=== PATIENT | female | born 1950 | race Caucasian/White ===

== ENCOUNTER 2020-02-12 09:35 | Inpatient (IN) ==
[2020-02-12] MEDS ORDERED: CEFAZOLIN 2000MG 2,000 MG/15 ML SYR IV SCH (11:00)
[2020-02-12 11:24] LABS: Basophils # (auto) 0.05 K/uL (0-0.2); Basophils % (auto) 0.6 %; Eosinophils % (auto) 1.1 %; Hematocrit (blood only) 43.2 % (37-47); Hemoglobin 14.2 g/dL (12.0-16.0); Immature Granulocytes # (auto) 0.03 K/uL (0.00-0.02); Immature Granulocytes % (auto) 0.3 %; Lymphocytes # (auto) 2.49 K/uL (1.2-3.4); Lymphocytes % (auto) 28.5 %; Mean Corpuscular Hemoglobin 30.4 pg (25-34); Mean Corpuscular Volume 92.5 fL (80-100); Mean Platelet Volume 10.2 fL (7.4-10.4); Monocytes # (auto) 0.46 K/uL (0.11-0.59); Monocytes % (auto) 5.3 %; Neutrophils # (auto) 5.61 K/uL (1.4-6.5); Neutrophils % (auto) 64.2 %; Platelet Count 272 K/uL (130-400); RDW Coefficient of Variation 13.5 % (11.5-14.5); RDW Standard Deviation 45.5 fL (36.4-46.3); Red Blood Count 4.67 M/uL (4.2-5.4); White Blood Count 8.74 K/uL (4.8-10.8)
[2020-02-12 11:28] LABS: Mean Corpuscular Hgb Conc 32.9 g/dL (32-36)
--- NOTE | 2020-02-12 11:32 | XRay Report ---
XR chest 2V PA/lateral CLINICAL HISTORY: pre op preoperative evaluation COMPARISON STUDY: 04/12/2015 FINDINGS: The bones soft tissues and hemidiaphragms are normal. The cardiomediastinal silhouette is n ormal. The lungs are clear. The pulmonary vasculature is normal. IMPRESSION: Negative chest. ACT 112: Negative or not required by law. The above report was generated using voice recognition software. It may contain grammatical, syntax or spelling errors. Electronically signed by: Curry Blanca M.D. 02/12/2020 11:31 AM
[2020-02-12 11:37] LABS: Partial Thromboplastin Time 28.2 Seconds (21.0-31.0); Prothrombin Time 10.6 Seconds (9.0-12.0)
[2020-02-12 11:42] LABS: Alanine Aminotransferase 22 U/L (12-78); Albumin Level 3.6 gm/dl (3.4-5.0); Aspartate Aminotransferase 20 U/L (15-37); Blood Urea Nitrogen 9 mg/dl (7-18); Calcium 9.2 mg/dl (8.5-10.1); Carbon Dioxide 28 mmol/L (21-32); Chloride 107 mmol/L (98-107); Est GFR (African American) 95.1; Est GFR (Non-African American) 82.1; Glucose 93 mg/dl (70-99); Potassium 4.8 mmol/L (3.5-5.1); Sodium 139 mmol/L (136-145)
[2020-02-12 11:44] LABS: Alkaline Phosphatase 94 U/L (45-117); Bilirubin,Total 0.5 mg/dl (0.2-1); Globulin 3.5 gm/dl (2.5-4.0); Total Protein 7.1 gm/dl (6.4-8.2)
[2020-02-12] MEDS ORDERED: ALPRAZolam 0.25 MG TABLET PO PRN (14:29)
[2020-02-13] MEDS ORDERED: BUPIVACAINE 0.5 % 5 MG/1 ML PF 10ML VIAL ONE (06:57)
--- NOTE | 2020-02-13 07:03 | Anesthesiology Consultation ---
Date of Service February 13, 2020 Assessment & Plan (1) Encounter for pre-operative examination: Chart Review Chart Review: Acceptable Risk for Surgery and Patient NOT seen in Pre Admission Testing covid 19 prescreening test NEGATIVE 02/12/2020. Consults Requested none History Surgery Operation Date: 02/13/20 07:30 Proposed Procedures p Left Long Trochanteric Nail - Mychal Norman MD Height/Weight Height: 5 ft 1 in Weight: 74.843 kg Allergies Allergy/AdvReac Type Severity Reaction Status Date / Time No Known Allergies Allergy Verified 08/13/02 18:52 Medications Home Medications Medication Instructions Recorded Confirmed Last Taken Alprazolam (Xanax) 0.25 - 0.5 mg PO TID PRN #0 tab 04/12/15 02/12/20 02/12/20 07:35 CALCIUM CITRATE-VITAMIN D 2 tab PO BID #0 04/12/15 02/12/20 Unknown (CITRACAL + D3 MAXIMUM) CHOLECALCIFEROL (Vitamin D) 3,000 inter.unit PO DAILY #0 tab 04/12/15 02/12/20 Unknown ERGOCALCIFEROL (VITAMIN D 32729 1 cap PO WK 28 Days #4 cap 04/12/15 02/12/20 02/08/20 [facility] (OSTEO 2 tab PO DAILY #0 04/12/15 02/12/20 Unknown BI-FLEX JOINT SHIEL) Lisinopril 10 mg PO DAILY 30 Days #0 tab 04/14/15 02/12/20 02/11/20 18:00 OXYCODONE/ACETAMINOPHEN 5MG/325MG 1 tab PO Q6 PRN #28 tab 04/14/15 02/12/20 Unknown (PERCOCET 5MG/325MG) Prednisone 30 mg PO DAILY #12 tab 04/14/15 02/12/20 Unknown Active Medications Generic Name Dose Route Start Last Admin Trade Name Freq PRN Reason Stop Dose Admin Alprazolam 0.25 mg 02/12/20 14:29 02/12/20 16:46 Alprazolam 0.25 Mg Tablet PO 03/13/20 14:28 0.25 mg TID PRN Administration Anxiety NPO Date Last Intake of Solids: 02/12/20 Time Last Intake of Solids: 19:00 Past Medical History Medical History (Updated 02/13/20 @ 07:03 by Tony Roman MD) Degenerative joint disease of right hip Depression Fracture of left pelvis HTN (hypertension) Mitral valve regurgitation Stress fracture of neck of left femur Exercise / Class Metabolic Activity II 4-5 Yardwork/Stairs/Walk up hill Past Surgical History Surgical History (Updated 02/13/20 @ 07:04 by Tony Roman MD) H/O cervical spine surgery "x 2" H/O: hysterectomy History of gastric bypass Hx of appendectomy Hx of cholecystectomy Hx of total knee arthroplasty "L knee" Hx of tubal ligation Past Anesthesia History No Hx of Anesthesia Complications and No Family Hx of Anesthesia Complications History of PONV No Hx of PONV and No Hx of Motion Sickness Social History Smoking Status: Former smoker tobacco type: cigarettes Do You Dip or Chew Tobacco: No Hx Alcohol Use: Yes Alcohol type: beer alcohol intake frequency: 3 or more drinks per day Alcohol Intake Frequency Comment: 4-5 glasses of beer per day Hx Substance Use: No Physical Exam Vital Signs Last Vital Signs Temp 37.1 C 02/13/20 06:57 Pulse 71 02/13/20 06:57 Resp 16 02/13/20 06:57 BP 172/89 H 02/13/20 06:57 Pulse Ox 100 02/13/20 06:57 Testing Laboratory Results 02/12/20 11:06 02/12/20 11:06 PT 10.6 Seconds (9.0-12.0) 02/12/20 11:06 INR 1.0 (0.9-1.1) 02/12/20 11:06 APTT 28.2 Seconds (21.0-31.0) 02/12/20 11:06 Blood Type A Negative 02/12/20 11:06 Antibody Screen NEGATIVE 02/12/20 11:06 Electrocardiogram Date: 02/12/20 Findings: + NSR @ (71) Normal sinus rhythm Normal ECG When compared with ECG of 12-APR-2015 08:36, No significant change was found
--- NOTE | 2020-02-13 07:09 | Electrocardiogram Report ---
Test Reason : Blood Pressure : / mmHG Vent. Rate : 071 BPM Atrial Rate : 071 BPM P-R Int : 134 ms QRS Dur : 082 ms QT Int : 416 ms P-R-T Axes : 049 008 042 degrees QTc Int : 452 ms Normal sinus rhythm Normal ECG When compared with ECG of 12-APR-2015 08:36, No significant change was found Confirmed by Luís Bernardo ([id number]) on 02/13/2020 7:09:35 AM Referred By: Mychal Norman Confirmed By:Luís Bernardo
--- NOTE | 2020-02-13 07:17 | History & Physical Bridge Note ---
Date of Service February 13, 2020 History & Physical Bridge Note I have examined the patient, reviewed the History & Physical and in the interval since the performance of the History & Physical I have noted the following changes of clinical significance: no changes noted
[2020-02-13] MEDS ORDERED: BUPIVACAINE/EPINEPHRINE 0.25% 1:200,000 30 ML VIAL ONE (07:32)
--- NOTE | 2020-02-13 08:51 | Post Operative Brief Note ---
PG Immediate Post Op with CF Date of Surgery February 13, 2020 Pre & Post Diagnosis Operation Date: 02/13/20 07:30 Pre-Op Diagnosis: Stress fracture of neck of left femur Post-Op Diagnosis: Stress fracture of neck of left femur I identified the patient and participated in the time-out.: Yes Procedure Operation Date: 02/13/20 07:30 Actual Procedures p Left Long Trochanteric Nail(Left) - Mychal Norman MD Surgeon Mychal Norman MD Installation Coordinator Valentine, PAC Estimated Blood Loss 100 Findings Consistent with Post-Op Diagnosis Fluids 800 cc Specimens Specimen Description: none per surgeon Drains [place] Catheter Anesthesia Type Spinal MAC Complications none Disposition Accompanied Patient To Recovery: No Disposition: Recovery Room
--- NOTE | 2020-02-13 08:59 | Operative Report ---
Post Operative Report Pre & Post Diagnosis Operation Date: 02/13/20 07:30 Pre-Op Diagnosis: Stress fracture of neck of left femur Post-Op Diagnosis: Stress fracture of neck of left femur I identified the patient and participated in the time-out.: Yes Procedure Operation Date: 02/13/20 07:30 Actual Procedures p Left Long Trochanteric Nail(Left) - Mychal Nomran MD Surgeon Mychal Norman MD Admeasurer Valentine, PAC Estimated Blood Loss 100 Findings Consistent with Post-Op Diagnosis Fluids 800 cc. Specimens None. Drains None. Anesthesia Type Spinal MAC Complications none Disposition Accompanied Patient To Recovery: No Disposition: Recovery Room Indications She has had a 2-month history of left groin pain and discomfort which is become more disabling over time. X-rays are fairly normal. An MRI showed a stress fracture of the femoral neck with significant tension sided injury. The patient indicated for IM nailing. We elect to use a long nail in order to stabilize her entire femur considering her history of osteoporosis and previous fracture on the other side.Patient is a 69-year-old female who has a long history of significant osteoporosis. Description of Procedure Operative implants consist of: 1. Synthes left 320 mm x 11 mm long trochanteric nail. 2. 80 mm helical blade. 3. 5.0 mm x 40 mm distal interlocking screw. The patient was taken to the operating identified and placed on the operating table supine position protectors were properly padded. A spinal anesthetic was employed by anesthesia team. IV antibiotics were provided. Patient then placed on the fracture table. The left leg was placed in boot traction the right leg was placed in a well leg nick. Applied some longitudinal traction to the left femur and internally rotated the foot slightly. X-rays brought in to make sure we can get adequate radiographs. Left hip and leg was then scrubbed with Hibiclens and then prepped with ChloraPrep in the usual sterile fashion. A curvilinear incision was made just at the tip of the proximal trochanter extending proximally. Sharp dissection was got through subcutaneous tissue down to the IT band gluteal fascia with the IT band gluteal fascia incised longitudinally. A guidewire was placed just lateral to the tip of the greater trochanter and in line with the IM canal. It was advanced down the IM canal under fluoroscopic guidance. This is overreamed with a 17 mm reamer. The guidewire was removed and exchanged for a ball-tipped guidewire. The ball- tipped guidewire was placed down the femoral canal. We then measured and a 320 mm nail was selected. I then reamed over the guidewire beginning with a 9 mm reamer and progressing up to 12-07/02. A Synthes the left 320 mm x 11 mm long trochanteric nail was then placed over the guidewire and tapped into position. A lateral aiming arm was attached. A stab incision was made laterally and the lateral aiming arm was advanced to the lateral aspect the femur. A guidewire was placed in the central aspect of the femoral head and neck in both AP and lateral planes. This was verified fluoroscopically. We measured for length and 80 mm helical blade was selected. The cortical drill was used to breach the cortex and then the triple reamer was reamed over the guidewire and an 80 mm helical blade was placed. Was tapped into position. The proximal setscrew was tightened. The guidewire was removed. Some final x-rays were obtained. Attention drawn toward distal fixation. A perfect lateral x-ray of the femur was then obtained for the perfect [place] technique distally. I placed a distal interlocking screw in the most distal hole. We used the dynamic hole but fixed it with an more bad static fashion placing this proximally. Stab incision was made and we drilled with a drill and a 5.0 x 40 mm screw was placed. I final x-rays were obtained. Attention drawn toward closing. All wounds were irrigated extensively. I did inject locally with 30 cc of appetite Marcaine with epinephrine. The IT band gluteal fascia then closed with #1 Vicryl suture in running fashion to the subcutaneous tissues of the proximal wound were closed in 2 layers with the deep layer #1 Vicryl suture and then the subcutaneous tissues of all wounds were closed with 2-0 Dexon suture in a buried interrupted fashion. Skin was closed skin kathleen. Leg was then cleaned dried a sterile dressing composed Xeroform, 4 x 4's, ABD pad and foam tape was applied. Patient was then taken off the fracture table and transferred to the recovery room in stable condition. Patient tolerated procedure well and there were no complications. Efe Grijalva, my physician assistant site manager, was present for the entire procedure. His assistance was required for appropriate positioning, prepping and draping, surgical exposure, performing the technical details of the operation, placing the implants, closing the wound, and placing the sterile dressing. I attest to the content of the Intraoperative Record and any orders documented therein. Any exceptions are noted below.
[2020-02-13] MEDS ORDERED: MEPERIDINE HCL 25 MG/ML CARP/VIAL ONE (09:07)
[2020-02-13] MEDS ORDERED: MEPERIDINE HCL 25 MG/ML CARP/VIAL IV PRN (09:34)
--- NOTE | 2020-02-13 09:45 | Hospitalist Consultation ---
Date of Consultation February 13, 2020 Assessment & Plan (1) Stress fracture of neck of left femur: - Pain management, bowel regimen and DVT ppx per the primary team - PT/OT consults - Follow am CBC to monitor for acute blood loss - Post surgery the pt developed some shaking in the Right upper ext which has resolved at this point. Her vitals have remained stable. BP 119/59, HR 58, Resp 16, Temp 36.1. She is on NC 2L. -Was administered Demoral 12.5 mg and has improved. Possible AR from spinal block? Anesthesiology has requested that medicine follow along. At this time with sx completely resolved there is no further intervention required, will monitor. (2) Fracture of left pelvis: - Hx of such, chronic (3) Vitamin D deficiency: (4) Osteoarthritis: - Cont vit D and calcium supplementation (5) Anxiety: - Stable (6) HTN (hypertension): - Continue lisinopril 10 mg daily (7) DVT prophylaxis: - teds, scds CODE: Full Dispo: Likely to remain in the hospital x 2 days History of Present Illness Reason for Consultation: Medical management, shaking of the R arm after L trochanter nailing on 02/12 Requesting Physician: Dr. Roman Attending Physician: Mychal Norman MD History of Present Illness This is a 69 yo F with PMhx of DJD, Depression, HTN, mitral valve regur, left pelvis fracture and stress fracture of neck of left femur who underwent elective Left long trochanteric nail by Dr. Norman on 02/13/2020. The patient developed a right arm shaking after surgical fixation in the PACU which prompted anesthesiology to re-eval the patient. She was administered Demoral 12.5 mg IV. Pt reported that this has happened before after surgery where she has uncontrolled shaking and it eventually resolves. She had a cervical surgery some time ago similarly developed increased shaking after procedure and resolved without intervention. Allergies Allergy/AdvReac Type Severity Reaction Status Date / Time No Known Allergies Allergy Verified 08/13/02 18:52 Home Medications Home Medications Medication Instructions Recorded Confirmed Type Alprazolam (Xanax) 0.25 - 0.5 mg PO TID PRN #0 tab 04/12/15 02/12/20 History CALCIUM CITRATE-VITAMIN D 2 tab PO BID #0 04/12/15 02/12/20 History (CITRACAL + D3 MAXIMUM) CHOLECALCIFEROL (Vitamin D) 3,000 inter.unit PO DAILY #0 tab 04/12/15 02/12/20 History ERGOCALCIFEROL (VITAMIN D 85068 1 cap PO WK 28 Days #4 cap 04/12/15 02/12/20 History UNIT) [facility] NATURAL PRODUCTS (OSTEO 2 tab PO DAILY #0 04/12/15 02/12/20 History BI-FLEX JOINT SHIEL) Lisinopril 10 mg PO DAILY 30 Days #0 tab 04/14/15 02/12/20 Rx OXYCODONE/ACETAMINOPHEN 5MG/325MG 1 tab PO Q6 PRN #28 tab 04/14/15 02/12/20 Rx (PERCOCET 5MG/325MG) Prednisone 30 mg PO DAILY #12 tab 04/14/15 02/12/20 Rx Patient History Medical History (Updated 02/13/20 @ 09:48 by Diamond Ulrich PA-C) Degenerative joint disease of right hip Depression Fracture of left pelvis HTN (hypertension) Mitral valve regurgitation Stress fracture of neck of left femur Surgical History (Updated 02/13/20 @ 07:04 by Tony Roman MD) H/O cervical spine surgery "x 2" H/O: hysterectomy History of gastric bypass Hx of appendectomy Hx of cholecystectomy Hx of total knee arthroplasty "L knee" Hx of tubal ligation Social History Smoking Status: Former smoker Second Hand Exposure: No; Do You Dip or Chew Tobacco: No; Tobacco Cessation Education Requested by Patient: No Hx Alcohol Use: Yes Alcohol type: beer Hx Substance Use: No Preferred Language: Bulgarian Communication Ability: Effective Beliefs That Will Affect Care: None marital status: Current Living Situation: Family Feels Safe at Home: Yes Safety Concerns: Feels Safe At This Time Results & Data Results & Data ([facility]) Vital Signs (Past 12 Hours) Vital Signs Temp Pulse Pulse Pulse Resp BP BP 02/13/20 08:55 36.1 C L 70 21 110/56 L 02/13/20 06:57 37.1 C 71 16 172/89 H 02/12/20 22:54 36.9 C 81 16 136/82 Pulse Ox 02/13/20 08:55 100 02/13/20 06:57 100 02/12/20 22:54 99 PG Care Time/CCT Total # of Minutes Spent Total Time Spent with Patient: Total time spent is greater than 50% in coordination of care (as documented) at patient's floor/unit and/or counseling patient: Coding Diagnoses Stress fracture of neck of left femur M84.352A Fracture of left pelvis S32.9XXA Vitamin D deficiency E55.9 Osteoarthritis M19.90 Anxiety F41.9 HTN (hypertension) I10 DVT prophylaxis Z29.9
--- NOTE | 2020-02-13 10:15 | Anesthesiology Progress Note ---
Date of Service February 13, 2020 Anesthesia Post Procedure Vital Signs Vital Signs: Temp Pulse Pulse Pulse Resp BP BP 02/13/20 10:05 36.2 C L 59 L 12 129/65 02/13/20 09:55 59 L 16 133/77 02/13/20 09:45 59 L 16 121/63 02/13/20 09:35 58 L 16 119/59 L 02/13/20 09:25 60 16 119/60 02/13/20 09:15 72 20 113/60 02/13/20 09:05 63 20 100/64 02/13/20 08:55 36.1 C L 70 21 110/56 L 02/13/20 06:57 37.1 C 71 16 172/89 H 02/12/20 22:54 36.9 C 81 16 136/82 02/12/20 15:25 37.0 C 63 18 152/80 H 02/12/20 11:13 36.7 C 16 142/84 H Pulse Ox 02/13/20 10:05 100 02/13/20 09:55 100 02/13/20 09:45 100 02/13/20 09:35 100 02/13/20 09:25 100 02/13/20 09:15 100 02/13/20 09:05 100 02/13/20 08:55 100 02/13/20 06:57 100 02/12/20 22:54 99 02/12/20 15:25 98 02/12/20 11:13 96 Pain Intensity Left Hip: Pain Intensity: 0 Leg: Pain Intensity: 4 Transfer of Care Handoff Completed per policy Notes Mental Status: alert / awake / arousable and participated in evaluation Patient Amnestic to Procedure: Yes Nausea / Vomiting: adequately controlled Pain: adequately controlled Airway Patency, RR, SpO2: stable & adequate BP & HR: stable & adequate Hydration State: stable & adequate Neuraxial Anesthesia: was administered and sensory block is resolving Anesthetic Complications: no major complications apparent and Pt Satisfied with anesthetic care Notes: Patient had a bout of shivering/shaking in recovery. No LOC. Answering questions throughout. Gave a dose of demerol that helped but RUE continued with tremor. Patient stated this has happened previously (started 2 years ago) and she has not sought out the advice of her primary care provider relating to this problem. Decided to consult hospitalist service to assist with postop management when she goes to the floor. Provider aware of the shaking/shivering event but it had resolved (lasted only but 30-60 seconds when I was called to the bedside to evaluate) prior to her being transferred to the floor. Spinal block is resolving and patient had all questions answered relating to anesthesia and the spinal prior to her being sent back to the floor.
[2020-02-13] MEDS ORDERED: NATURAL PRODUCTS PO SCH (10:16)
[2020-02-13] MEDS ORDERED: NALOXONE HCL 0.4 MG/1 ML VIAL/CARP IV PRN (10:16)
[2020-02-13] MEDS ORDERED: PREDNISONE 30 MG PO SCH (10:16)
--- NOTE | 2020-02-13 10:46 | Fluoroscopy Report ---
FL hip LT 2-3V CLINICAL HISTORY: Hip fracture COMPARISON STUDY: MRI dated 02/11/2020 FLUOROSCOPY TIME: 18 seconds. NUMBER OF FLUOROSCOPIC IMAGES: 4 FINDINGS: 4 intraoperative fluoroscopic spot images demonstrate a femoral neck nail and interlocking intramedullary anna with a transverse distal interlocking screw. There are postsurgical changes of a t otal left knee arthroplasty. IMPRESSION: Fluoroscopic spot images demonstrating internal fixation of a femoral neck fracture ACT 112: Negative or not required by law. Electronically signed by: Dago Rich M.D. 02/13/2020 10:44 AM
[2020-02-13] MEDS: CHOLECALCIFEROL 1,000 UNITS 25 MCG TAB PO SCH (11:23)
[2020-02-13] MEDS: CALCIUM 600MG + VIT D 400 IU TAB PO SCH ×2 (11:23→21:04)
[2020-02-13] MEDS ORDERED: GABAPENTIN 1200MG ALCOHOL WITHDRAWAL LOAD PO STA (11:25)
[2020-02-13] MEDS ORDERED: LORazepam 1 MG TAB PO PRN (11:25)
[2020-02-13] MEDS ORDERED: LORazepam 0.5 MG/1 ML VIAL IV ONE (11:45)
[2020-02-13] MEDS ORDERED: GABAPENTIN 600 MG TAB PO ONE (12:00)
[2020-02-13] MEDS: D5W AND 1/4NSS 1,000 ML IV SCH (12:30)
[2020-02-13] MEDS: lisinopriL 10 MG TAB PO SCH (12:31)
--- NOTE | 2020-02-13 12:32 | Consultation ---
Date of Consultation February 13, 2020 Assessment & Plan (1) Stress fracture of neck of left femur: S/P left long trochanteric nail by Dr. oNrman POD #0 EBL 100 mL Tolerated procedure well Pain/wound management per Ortho Activity, therapy and DVT prophylaxis per Ortho Encourage incentive spirometry and wean off O2 as able Monitor H&H (2) Tremor: post operative tremor of upper extremity/head pt states post op had tremors in past, unknown cause & resolved on own She is hemodynamically stable possible ADR of anesthesia, but also of concern is patient significant alcohol use, last drink evening of 02/10 Feel less likely active withdrawal as tremor resolves as you engage with patient in conversation and she is not tachycardic Place on ETOH withdrawal protocol (3) Alcohol abuse: discussed with patient regarding significant alcohol use, states uses it for pain relief Current cessation Place on AWSS protocol Gabapentin taper Give Lorazepam 0.5mg IV x 1 now Tremors seem to subside after engaging patient, less likely active withdrawal at this time as HR is in 60s monitor closely (4) HTN (hypertension): Blood pressure elevated, resume lisinopril Monitor (5) Anxiety: Mood stable, PRN Xanax (6) Vitamin D deficiency: Replete weekly (7) DVT prophylaxis: ASA BID per ortho Disposition: per primary Follow up: PCP Dr. Rouse upon discharge Pt was seen and examined in collaboration with Dr. Huston, please see addendum Thank you for this consultation. We will follow the patient with you during their hospital stay. You [facility] via pager @ [phone]. Supervising Physician Co-Signing Physician Notes I have seen and examined the patient and have discussed the case with the rajendra meehan above. I agree with the assessment and plan as stated. 69 F with HTN and alcohol abuse s/p trochanteric nail this morning. She is being seen in the evening and is doing well. She was concerned that she still had heaviness to her legs with feeling now coming back to her feet bilaterally. We spoke about the effects of spinal anesthesia and she was reassured this would clear up by the morning. She has been on an alcohol withdrawal protocol and is not exhibiting any symptoms of withdrawal at this time. She is calm and eating well. Aside from some residual effect of the anesthesia, she appears neurologically intact. 3/6 JACLYN, S1/2 heard, clear lungs to auscultation bilaterally. Sensation is normal and same on her feet now. No increased respiratory effort. Agree with plan of care as above. Patient is overall feeling better. Thank you for this consultation. DO Shabbir Huston Hospitalist History of Present Illness Requesting Physician: Tony Roman MD Reason for Consultation: Post op shaking in PACU. Attending Physician: Mychal Norman MD History of Present Illness This is a 69-year-old female who has significant past medical history of HTN, HLD, mitral valve regurg history of gastric bypass, osteoporosis, cervical radiculopathy, panic disorder, anxiety, alcohol abuse who underwent elective left long trochanteric nail by Dr. Norman on 02/13/2020 secondary to stress fracture of neck of left femur and left pelvis fracture. In PACU patient developed shaking and tremors to right upper extremity. This was witnessed by anesthesiology. She received 12.5 mg IV Demerol with improvement of symptoms. Symptoms lasted approximately 30 to 60 seconds and apparently had resolved. According to patient she had similar episode in the past although was not this severe. When I went to see and evaluate patient she was having shaking/tremors to bilateral upper extremities and head. She states "I have never experienced this before." She denies any resting tremor at baseline. Currently she otherwise feels well and denies any current pain to the left leg, although she is still under effects of anesthesia. She denies any recent fever, chills, sweats, lightheadedness, dizziness, chest pain, shortness breath, cough, nausea, vomiting, abdominal pain. She states she did not move her bowels yesterday and is requesting stool softener. She currently has Stuart catheter in place. We did discuss alcohol use in which she states that she drinks 4-5 - 8 ounce beers daily. She drinks steel reserve which are 8.1%. She states she went a few days without drinking in past and did not experience and s/sx of withdrawal including tremors, sweats or racing heart beat. Currently she is hypertensive and states she did not take her lisinopril this morning or yesterday. Allergies Allergy/AdvReac Type Severity Reaction Status Date / Time amoxicillin [From Augmentin] AdvReac Intermediate diarrhea Verified 02/13/20 10:58 clavulanic acid AdvReac Intermediate diarrhea Verified 02/13/20 10:58 [From Augmentin] Home Medications Home Medications Medication Instructions Recorded Confirmed Type alprazolam 0.25 mg PO TID PRN 02/13/20 02/13/20 History ergocalciferol (vitamin D2) 1,250 mcg PO WK 02/13/20 02/13/20 History [Vitamin D2] lisinopril 10 mg PO DAILY 02/13/20 02/13/20 History Patient History Medical History Degenerative joint disease of right hip Depression Fracture of left pelvis HTN (hypertension) Mitral valve regurgitation Stress fracture of neck of left femur Surgical History H/O cervical spine surgery "x 2" H/O: hysterectomy History of gastric bypass Hx of appendectomy Hx of cholecystectomy Hx of total knee arthroplasty "L knee" Hx of tubal ligation Family History Aunt Breast cancer Brother Diabetes Social History (Updated 02/13/20 @ 12:18 by Lani Colvin PA-C) Smoking Status: Former smoker Second Hand Exposure: No; Do You Dip or Chew Tobacco: No; Tobacco Cessation Education Requested by Patient: No Hx Alcohol Use: Yes Alcohol type: beer Alcohol Intake Frequency Comment: daily, 4-5 8oz glasses of steel reserve 8.1% Hx Substance Use: No Preferred Language: Khmer Communication Ability: Effective Beliefs That Will Affect Care: None marital status: Current Living Situation: Spouse and Family Feels Safe at Home: Yes Safety Concerns: Feels Safe At This Time Review of Systems Review of Systems: All systems reviewed & are unremarkable except as noted in HPI & below Physical Exam Physical Exam: Constitutional: WD/WN, vitals as above, NAD, patient with resting tremor of bilateral upper extremities and head which seem to resolve with conversation, sitting up in bed, answers questions appropriately Head: Normocephalic, Atraumatic Eyes: PERRL, conjunctivae normal, anicteric sclerae ENMT: external ear and nose normal, oropharynx normal Neck: trachea midline, no thyromegaly normal visual inspection Respiratory: normal respiratory effort, lungs clear to auscultation, no wheeze, rales, rhonchi. Normal insp/exp effort, no accessory muscle use Cardiovascular: RRR, no murmur, no edema Vessels: no JVD or carotid bruit Chest: normal inspection of chest Abdomen: normal bowel sounds, soft, nontender, no hepatosplenomegaly Musculoskeletal: no cyanosis or clubbing, left lateral thigh dressing CDI, NVI distally, b/l pedal pulse +2, arom to b/l upper ext Skin: no rashes, warm and dry normal turgor Neurologic: PERRL, EOMI, accommodation nl, no face palsy, no dysarthria CN's II-XI intact bilaterally and moves all extremities Psychiatric: A+Ox3, euthymic affect Lymphatic: no cervical or axillary lymphadenopathy : +stuart cath draining clear yellow urine Results & Data ([facility]) Vital Signs (Past 12 Hours) Vital Signs Temp Pulse Pulse Pulse Resp BP BP 02/13/20 11:15 67 16 160/88 H 02/13/20 10:51 36.5 C 18 149/95 H 02/13/20 10:15 36.4 C L 76 18 137/78 02/13/20 10:05 36.2 C L 59 L 12 129/65 02/13/20 09:55 59 L 16 133/77 02/13/20 09:45 59 L 16 121/63 02/13/20 09:35 58 L 16 119/59 L 02/13/20 09:25 60 16 119/60 02/13/20 09:15 72 20 113/60 02/13/20 09:05 63 20 100/64 02/13/20 08:55 36.1 C L 70 21 110/56 L 02/13/20 06:57 37.1 C 71 16 172/89 H Pulse Ox 02/13/20 11:15 100 02/13/20 10:51 95 02/13/20 10:15 02/13/20 10:05 100 02/13/20 09:55 100 02/13/20 09:45 100 02/13/20 09:35 100 02/13/20 09:25 100 02/13/20 09:15 100 02/13/20 09:05 100 02/13/20 08:55 100 02/13/20 06:57 100 Laboratory Results 02/11 labs: H/H 14.2 and 43.2, K 4.8, Bun 9, Cr 0.74 02/12/20 02/12/20 02/12/20 Range/Units 12:45 12:45 11:06 COVID-19 Eval Order Covid19 Done at [facility] COVID-19 PCR NEGATIVE (Negative) Blood Type A Negative Antibody Screen NEGATIVE Diagnostic Findings Hip Xray: IMPRESSION: Fluoroscopic spot images demonstrating internal fixation of a femoral neck fracture CXR 02/11: No acute process Medications Administered Alprazolam (Alprazolam 0.25 Mg Tablet) 0.25 mg PO TID PRN PRN Reason: Anxiety Stop: 03/13/20 14:28 Last Admin: 02/12/20 16:46 Dose: 0.25 mg Documented by: [id number] Meperidine HCl (Meperidine Hcl 25 Mg/Ml Carp/Vial) 12.5 mg IV Q5M PRN PRN Reason: PACU Use Only-Pain/Shivering Stop: 02/13/20 17:34 Last Admin: 02/13/20 09:07 Dose: 12.5 mg Documented by: [id number] Multivitamins/Minerals (Calcium 600mg + Vit D 400 Iu Tab) 1 tab PO BID EHSAN Stop: 03/14/20 10:15 Last Admin: 02/13/20 11:23 Dose: Not Given Documented by: [id number] Vitamin D (Cholecalciferol 1,000 Units 25 Mcg Tab) 3,000 units PO DAILY EHSAN Stop: 03/14/20 10:15 Last Admin: 02/13/20 11:23 Dose: Not Given Documented by: [id number] Discontinued Medications Bupivacaine HCl/Epinephrine Bitart (Bupivacaine/Epinephrine 0.25% 1:200,000 30 Ml Vial) Confirm Administered Dose 30 ml .ROUTE .STK-MED ONE Stop: 02/13/20 07:33 Last Admin: 02/13/20 08:32 Dose: 30 ml Documented by: [id number] Cefazolin Sodium (Ancef 2000mg) 2,000 mg in 15 mls @ 3.75 mls/min IV PREOP EHSAN; Protocol Stop: 02/12/20 23:00 Last Admin: 02/13/20 07:44 Dose: 3.75 mls/min Documented by: [id number] Meperidine HCl (Meperidine Hcl 25 Mg/Ml Carp/Vial) Confirm Administered Dose 25 mg .ROUTE .K-MED ONE Stop: 02/13/20 09:08 Last Admin: 02/13/20 10:31 Dose: Not Given Documented by: [id number] ECG Rate (beats per minute): 71 Rhythm: normal sinus
[2020-02-13] MEDS: OXYCODONE HCL IR 5 MG TAB (IMMEDIATE RELEASE) PO PRN ×2 (14:07→18:07)
[2020-02-13] MEDS: HYDROmorphone INJ 0.5 MG/0.5 ML SYR IV PRN (17:37)
[2020-02-13] MEDS: GABAPENTIN 600 MG TAB PO SCH (17:37)
[2020-02-13] MEDS: DOCUSATE SODIUM/SENNA 50/8.6MG TAB PO SCH (21:04)
[2020-02-13] MEDS: ASPIRIN 81 MG ECTAB PO SCH (21:04)
[2020-02-14] MEDS: D5W AND 1/4NSS 1,000 ML IV SCH (00:14)
[2020-02-14] MEDS: GABAPENTIN 600 MG TAB PO SCH ×4 (00:15→23:25)
[2020-02-14] MEDS: OXYCODONE HCL IR 5 MG TAB (IMMEDIATE RELEASE) PO PRN ×5 (03:17→22:28)
[2020-02-14 06:04] LABS: Basophils # (auto) 0.03 K/uL (0-0.2); Basophils % (auto) 0.3 %; Eosinophils # (auto) 0.14 K/uL (0-0.5); Eosinophils % (auto) 1.5 %; Hematocrit (blood only) 33.7 % (37-47); Hemoglobin 11.3 g/dL (12.0-16.0); Immature Granulocytes # (auto) 0.02 K/uL (0.00-0.02); Immature Granulocytes % (auto) 0.2 %; Lymphocytes # (auto) 2.02 K/uL (1.2-3.4); Lymphocytes % (auto) 21.8 %; Mean Corpuscular Hemoglobin 30.6 pg (25-34); Mean Corpuscular Hgb Conc 33.5 g/dL (32-36); Mean Corpuscular Volume 91.3 fL (80-100); Mean Platelet Volume 9.8 fL (7.4-10.4); Monocytes # (auto) 0.91 K/uL (0.11-0.59); Monocytes % (auto) 9.8 %; Neutrophils # (auto) 6.15 K/uL (1.4-6.5); Neutrophils % (auto) 66.4 %; Platelet Count 203 K/uL (130-400); RDW Coefficient of Variation 13.4 % (11.5-14.5); Red Blood Count 3.69 M/uL (4.2-5.4); White Blood Count 9.27 K/uL (4.8-10.8)
[2020-02-14 06:35] LABS: BUN Creatinine Ratio 8.3 (10-20); Calcium 7.8 mg/dl (8.5-10.1); Creatinine Clr Calc Pharmacy 70.2 ml/min; Est GFR (African American) 102.2; Est GFR (Non-African American) 88.2; Potassium 3.8 mmol/L (3.5-5.1)
[2020-02-14] MEDS: HYDROmorphone INJ 0.5 MG/0.5 ML SYR IV PRN (06:44)
[2020-02-14] MEDS: CHOLECALCIFEROL 1,000 UNITS 25 MCG TAB PO SCH (08:51)
[2020-02-14] MEDS: CALCIUM 600MG + VIT D 400 IU TAB PO SCH ×2 (08:51→20:47)
[2020-02-14] MEDS: lisinopriL 10 MG TAB PO SCH (08:51)
[2020-02-14] MEDS: DOCUSATE SODIUM/SENNA 50/8.6MG TAB PO SCH ×2 (08:51→20:47)
[2020-02-14] MEDS: ASPIRIN 81 MG ECTAB PO SCH ×2 (08:51→20:47)
[2020-02-14] MEDS ORDERED: lisinopriL 10 MG TAB PO SCH (09:00)
--- NOTE | 2020-02-14 09:53 | Hospitalist Progress Note ---
Date of Service February 14, 2020 Assessment & Plan (1) Stress fracture of neck of left femur: S/P left long trochanteric nail by Dr. Norman POD #1 Tolerated procedure well Developed tremors in PACU after procedure Pain/wound management per Ortho Activity, therapy and DVT prophylaxis per Ortho Encourage incentive spirometry and wean off O2 as able Monitor H&H (2) Tremor: post operative tremor of upper extremity/head pt states post op had tremors in past, unknown cause & resolved on own She is hemodynamically stable possible ADR of anesthesia, but also of concern is patient significant alcohol use, last drink evening of 02/10 Feel less likely active withdrawal as tremor resolved when engaged with staff, pt not tachycardic Placed on ETOH withdrawal protocol (3) Alcohol abuse: Pt states uses alcohol for pain relief, daily beer drinker Current cessation Place on AWSS protocol Gabapentin taper Give Lorazepam 0.5mg IV x 1 now Tremors seem to subside after engaging patient, less likely active withdrawal at this time as HR is in 60s monitor closely Fever -Patient developed fever 38.1 Celsius, last evening postop -This morning, patient has temperature 37.8 C -She feels well overall -We will do infectious work-up, chest x-ray, blood cultures, urine culture -Empiric antibiotics for now, until infectious etiology ruled out (4) HTN (hypertension): Blood pressure elevated, resume lisinopril Monitor (5) Anxiety: Mood stable, PRN Xanax (6) Vitamin D deficiency: Replete weekly (7) DVT prophylaxis: ASA BID per ortho Disposition: per primary Follow up: PCP Dr. Rouse upon discharge Thank you for this consultation. We will follow the patient with you during their hospital stay. You can reach a member of the [facility]ist Team 21/01 via pager @ [phone]. Admission and Anticipated Discharge Date Admission Date: February 12, 2020 Subjective Patient spiked fever last night, around 8 PM, 38.1 Celsius. Patient received cefazolin prior to surgery. We will do infectious work-up, blood culture, urine, chest x-ray. Will empirically treat with antibiotics for now. Medicine consulted for tremors, not clear if this is related to her alcohol use. Currently patient is lying in bed, in no acute distress. She says that in the morning her left hip was really bothering her, and she was in a lot of pain. She is also aware of having a fever last night, currently denies any chills, chest pain, shortness of breath, cough, abdominal pain, nausea or vomiting. Also denies any more tremors. Review of Systems Review of Systems: All systems reviewed & are unremarkable except as noted in HPI & below Constitutional: no fever and no chills Respiratory: no cough and no dyspnea Cardiovascular: no chest pain and no palpitations Gastrointestinal: no abdominal pain, no nausea and no vomiting Physical Exam Physical Exam: Constitutional: WD/WN, vitals as above, laying in bed, in NAD Head: Normocephalic, Atraumatic Eyes: PERRL, EOMI, conjunctivae normal, anicteric sclerae ENMT: external ear and nose normal, oropharynx normal Neck: trachea midline, no thyromegaly normal visual inspection Respiratory: normal respiratory effort, lungs clear to auscultation, no wheeze, rales, rhonchi. Normal insp/exp effort, no accessory muscle use Cardiovascular: RRR, no murmur, no edema Vessels: no JVD or carotid bruit Chest: normal inspection of chest Abdomen: normal bowel sounds, soft, nontender Musculoskeletal: no cyanosis or clubbing, left lateral thigh dressing CDI, NVI distally, b/l pedal pulse +2, arom to b/l upper ext Skin: no rashes, warm and dry normal turgor Neurologic: PERRL, EOMI, accommodation nl, no face palsy, no dysarthria CN's II-XI intact bilaterally and moves all extremities Psychiatric: A+Ox3, euthymic affect : +stuart cath draining clear yellow urine Results & Data Results & Data ([facility]) Vital Signs (Past 12 Hours) Vital Signs Temp Pulse Resp BP Pulse Ox 02/14/20 08:22 37.8 C H 83 18 125/75 97 02/14/20 03:10 37.5 C 85 16 117/75 97 02/13/20 23:16 37.0 C 80 16 100/65 95 Laboratory Results 02/14/20 02/14/20 02/14/20 Range/Units 05:18 05:18 05:18 WBC 9.27 (4.8-10.8) K/uL RBC 3.69 L (4.2-5.4) M/uL Hgb 11.3 L (12.0-16.0) g/dL Hct 33.7 L (37-47) % MCV 91.3 (80-100) fL MCH 30.6 (25-34) pg MCHC 33.5 (32-36) g/dL RDW Std Deviation 45.0 (36.4-46.3) fL RDW Coeff of Soumya 13.4 (11.5-14.5) % Plt Count 203 (130-400) K/uL MPV 9.8 (7.4-10.4) fL Immature Gran % (Auto) 0.2 % Neut % (Auto) 66.4 % Lymph % (Auto) 21.8 % Gray % (Auto) 9.8 % Eos % (Auto) 1.5 % Baso % (Auto) 0.3 % Neut # (Auto) 6.15 (1.4-6.5) K/uL Lymph # (Auto) 2.02 (1.2-3.4) K/uL Gray # (Auto) 0.91 H (0.11-0.59) K/uL Eos # (Auto) 0.14 (0-0.5) K/uL Baso # (Auto) 0.03 (0-0.2) K/uL Immature Gran # (Auto) 0.02 (0.00-0.02) K/uL Sodium 140 (136-145) mmol/L Potassium 3.8 D (3.5-5.1) mmol/L Chloride 107 (98-107) mmol/L Carbon Dioxide 27 (21-32) mmol/L Anion Gap 6.0 (3-11) BUN 6 L (7-18) mg/dl Creatinine 0.69 (0.6-1.2) mg/dl Est Cr Clr Drug Dosing 70.2 ml/min Est GFR ( Amer) 102.2 Est GFR (Non-Af Amer) 88.2 BUN/Creatinine Ratio 8.3 L (10-20) Glucose 105 H (70-99) mg/dl Calcium 7.8 L D (8.5-10.1) mg/dl Magnesium 1.9 (1.8-2.4) mg/dl Medications Administered Current Inpatient Medications Alprazolam (Alprazolam 0.25 Mg Tablet) 0.25 mg PO TID PRN PRN Reason: Anxiety Stop: 03/13/20 14:28 Last Admin: 02/12/20 16:46 Dose: 0.25 mg Documented by: Aspirin (Aspirin 81 Mg Ectab) 81 mg PO BID [facility] Stop: 03/14/20 20:59 Last Admin: 02/14/20 08:51 Dose: 81 mg Documented by: Ergocalciferol (Ergocalciferol 50,000 Units Cap) 50,000 units PO Mo@0900 [facility] Stop: 03/16/20 08:59 Gabapentin (Gabapentin 600 Mg Tab) 600 mg PO Q8H EHSAN Stop: 02/15/20 00:01 Last Admin: 02/14/20 08:04 Dose: 600 mg Documented by: Gabapentin (Gabapentin 600 Mg Tab) 600 mg PO Q12H [facility] Stop: 02/16/20 00:01 Gabapentin (Gabapentin 600 Mg Tab) 600 mg PO Q24H [facility] Stop: 02/17/20 00:01 Hydromorphone HCl (Hydromorphone Inj 0.5 Mg/0.5 Ml Syr) 0.5 mg IV Q2H PRN PRN Reason: Pain Stop: 02/27/20 10:19 Last Admin: 02/14/20 06:44 Dose: 0.5 mg Documented by: Lisinopril (Lisinopril 10 Mg Tab) 10 mg PO DAILY [facility] Stop: 03/14/20 11:29 Last Admin: 02/14/20 08:51 Dose: 10 mg Documented by: Lorazepam (Lorazepam 1 Mg Tab) 1 mg PO ONE PRN; Protocol PRN Reason: EtoH Withdrawal AWSS 6-10 Miscellaneous Information (Consult Pharmacy) 1 ea N/A NOW STA Stop: 02/14/20 09:47 Multivitamins/Minerals (Calcium 600mg + Vit D 400 Iu Tab) 1 tab PO BID EHSAN Stop: 03/14/20 10:15 Last Admin: 02/14/20 08:51 Dose: Not Given Documented by: Naloxone HCl (Naloxone Hcl 0.4 Mg/1 Ml Vial/Carp) 0.1 mg IV UD PRN PRN Reason: Opioid Overdose Stop: 03/14/20 10:15 Oxycodone HCl (Oxycodone Hcl Ir 5 Mg Tab (Immediate Release)) 5 mg PO Q4H PRN PRN Reason: Pain Stop: 02/27/20 10:19 Last Admin: 02/14/20 08:50 Dose: 5 mg Documented by: Senna/Docusate Sodium (Docusate Sodium/Senna 50/8.6mg Tab) 1 tab PO BID [facility] Stop: 03/14/20 20:59 Last Admin: 02/14/20 08:51 Dose: 1 tab Documented by: Vitamin D (Cholecalciferol 1,000 Units 25 Mcg Tab) 3,000 units PO DAILY [facility] Stop: 03/14/20 10:15 Last Admin: 02/14/20 08:51 Dose: Not Given Documented by:
[2020-02-14] MEDS ORDERED: CEFEPIME CONSULT ACTIVE PRN (09:56)
[2020-02-14] MEDS: CEFEPIME 2,000 MG in SYRINGE 7.5 ML IV SCH ×2 (10:18→22:29)
--- NOTE | 2020-02-14 10:25 | Progress Notes ---
DATE: 02/14/2020 SUBJECTIVE: A 69-year-old female postop day 1 from IM nailing of a left femoral neck stress fracture. She is having quite a bit of pain. They had difficulty getting her out of bed last evening. She describes mostly lateral hip pain and some thigh pain. No chest pain or shortness of breath. Not feeling dizzy or lightheaded. The patient did have significant tremors when she woke from anesthesia yesterday. The medicine service was consulted. The tremors have resolved. I think it is most likely just related to anesthesia, which is a known issue. There was some concern about alcohol withdrawal, which I think is much less likely. In any case, they placed her on an alcohol withdrawal protocol. OBJECTIVE: VITAL SIGNS: Temperature is 37.5. Vital signs stable. GENERAL: Shows a pleasant elderly female. She is lying in bed. She is kind of a bit weepy. EXTREMITIES: Leg is well aligned. Dressings are clean, dry and intact. There is no swelling. She can dorsiflex and plantarflex her foot appropriately. She is struggling on doing a single leg independent leg lift. LABORATORY DATA: Hemoglobin 11.3. Hematocrit 33.7. Electrolytes are stable. ASSESSMENT: A 69-year-old female postop day 1 from IM nailing of left femoral neck stress fracture/insufficiency fracture. She is having quite a bit of discomfort. I believe her pain tolerance is likely quite low. Everything looks better from the orthopedic standpoint. There was some concern about alcohol withdrawal, which I think is extremely unlikely. I think she just had some postoperative tremors, which responded to Demerol. PLAN: 1. DVT prophylaxis including thigh-high TEDs, SCDs, and aspirin twice a day. 2. PT/OT. We are going to allow her to be 50% weightbearing on the left leg. I told her it is normal to have trouble lifting her leg at least for the first week or two after an operation like this. 3. Pain control, doing okay with current pain regimen. 4. Medical management as per the medicine service. She is on a DT protocol. 5. Disposition: She is hoping to be discharged to home. We are going to see how therapy goes today. If she is doing okay, we may discharge today or depending on pain control may be in a day or 2.
--- NOTE | 2020-02-14 10:42 | XRay Report ---
XR chest 1V portable HISTORY: 69 years-old Female fever acute fever COMPARISON: Chest radiograph 02/12/2020 TECHNIQUE: Portable AP view of the chest FINDINGS: Cardiomediastinal and hilar silhouettes are within normal limits. No pneumothorax, pleural effusion, airspace consolidation or overt pulmonary edema. Degenerative changes of the shoulders and spine. Low er cervical spine fusion hardware. IMPRESSION: No acute process. ACT 112: Negative or not required by law. The above report was generated using voice recognition software. It may contain grammatical, syntax o r spelling errors. Electronically signed by: Carter Bernardo M.D. 02/14/2020 10:40 AM
[2020-02-14 11:25] LABS: Appearance Urine Clear (Clear); Bilirubin Urine Negative (Negative); Blood Urine Trace (Negative); Color Urine Yellow; Glucose Urine UA Negative (Negative); Ketones Urine Negative (Negative); Leukocyte Esterase Urine 1+ (Negative); Nitrite Urine Negative (Negative); Protein Urine Trace (Negative); Specific Gravity Urine 1.025 (1.000-1.030); Urobilinogen Urine Negative (Negative)
[2020-02-14 11:55] LABS: Epithelial Cell Urine 20-30 /lpf (0-5)
[2020-02-14 11:56] LABS: Calcium Oxalate Crystals Urine Present (None Prsent)
[2020-02-14 11:57] LABS: Bacteria Urine 1+ (Negative)
[2020-02-14] MEDS ORDERED: ACETAMINOPHEN 325 MG TAB PO PRN (23:19)
[2020-02-14] MEDS ORDERED: NORMOSOL-R 500 ML IV ONE (23:23)
[2020-02-15] MEDS ORDERED: DAPTOMYCIN CONSULT ACTIVE PRN (00:23)
--- NOTE | 2020-02-15 00:23 | Communication Note ---
Date of Service: February 15, 2020 Made aware by RN of SBP 90s, intermittent fever spike Lactic acid 2.4 AP Possible sepsis Unknown source for now IVF, follow lactic acid Add Daptomycin to cefepime Rx for now Will relay to AM provider.
[2020-02-15] MEDS ORDERED: MAGNESIUM SULFATE / D5W 1 GM/100 ML BAG IV ONE (00:26)
[2020-02-15] MEDS ORDERED: LACTATED RINGER'S 1,000 ML IV SCH (00:30)
[2020-02-15] MEDS ORDERED: DAPTOmycin 300 MG in SYRINGE 0 ML IV SCH (01:00)
[2020-02-15 04:10] LABS: Basophils # (auto) 0.03 K/uL (0-0.2); Basophils % (auto) 0.3 %; Eosinophils # (auto) 0.18 K/uL (0-0.5); Eosinophils % (auto) 1.6 %; Hematocrit (blood only) 31.5 % (37-47); Hemoglobin 10.4 g/dL (12.0-16.0); Immature Granulocytes # (auto) 0.05 K/uL (0.00-0.02); Immature Granulocytes % (auto) 0.5 %; Lymphocytes # (auto) 2.34 K/uL (1.2-3.4); Lymphocytes % (auto) 21.3 %; Mean Corpuscular Hemoglobin 30.5 pg (25-34); Mean Corpuscular Volume 92.4 fL (80-100); Mean Platelet Volume 9.5 fL (7.4-10.4); Monocytes % (auto) 10.9 %; Neutrophils # (auto) 7.19 K/uL (1.4-6.5); Neutrophils % (auto) 65.4 %; Platelet Count 178 K/uL (130-400); RDW Coefficient of Variation 13.4 % (11.5-14.5); RDW Standard Deviation 45.1 fL (36.4-46.3); Red Blood Count 3.41 M/uL (4.2-5.4); White Blood Count 10.99 K/uL (4.8-10.8)
[2020-02-15 04:28] LABS: Albumin Level 2.4 gm/dl (3.4-5.0); BUN Creatinine Ratio 9.1 (10-20); Calcium 7.8 mg/dl (8.5-10.1); Creatinine Clr Calc Pharmacy 70.2 ml/min; Est GFR (African American) 102.2; Est GFR (Non-African American) 88.2; Magnesium 2.5 mg/dl (1.8-2.4); Potassium 3.8 mmol/L (3.5-5.1)
[2020-02-15 04:31] LABS: Albumin Globulin Ratio 0.8 (0.9-2); Bilirubin,Total 0.6 mg/dl (0.2-1); Total Protein 5.4 gm/dl (6.4-8.2)
[2020-02-15] MEDS ORDERED: LACTATED RINGER'S 1,000 ML IV ONE (05:00)
--- NOTE | 2020-02-15 07:55 | Hospitalist Progress Note ---
Date of Service February 15, 2020 Assessment & Plan (1) Stress fracture of neck of left femur: S/P left long trochanteric nail by Dr. Norman POD #2 Tolerated procedure well Developed tremors in PACU after procedure Pain/wound management per Ortho Activity, therapy and DVT prophylaxis per Ortho Encourage incentive spirometry Monitor H&H (2) Tremor: post operative tremor of upper extremity/head pt states post op had tremors in past, unknown cause & resolved on own She is hemodynamically stable Likely ADR of anesthesia, but also of concern is patient significant alcohol use, last drink evening of 02/10 Feel less likely active withdrawal as tremor resolved when engaged with staff, pt not tachycardic Placed on ETOH withdrawal protocol while inpt Patient does not have any more tremors, feels very well (3) Alcohol abuse: Pt states uses alcohol for pain relief, daily beer drinker Current cessation Place on AWSS protocol Gabapentin taper Give Lorazepam 0.5mg IV x 1 now Tremors seem to subside after engaging patient, less likely active withdrawal, HR wnl on evaluation monitor closely Fever -Patient developed fever 38.1 Celsius, evening postop and again last night -She feels well overall -infectious work-up, chest x-ray, blood cultures, urine culture, chest x-ray unremarkable, urine culture unremarkable, blood cultures pending -Empiric antibiotics started however low suspicion for infectious etiology. Discussed with Dr. Norman, he believes this is secondary to surgery, and as patient has no other symptoms, not concerning, patient will be discharged home later today. (4) HTN (hypertension): Blood pressure elevated, resume lisinopril Monitor (5) Anxiety: Mood stable, PRN Xanax (6) Vitamin D deficiency: Replete weekly (7) DVT prophylaxis: ASA BID per ortho Disposition: per primary Follow up: PCP Dr. Rouse upon discharge Thank you for this consultation. We will follow the patient with you during their hospital stay. You can reach a member of the [facility] Hospitalist Team 21/01 via pager @ [phone]. Admission and Anticipated Discharge Date Admission Date: February 12, 2020 Subjective Patient spiked fever again overnight and business intelligence etl developer was notified. He added daptomycin to cefepime. Yesterday, I ordered infectious work-up, blood culture, urine, chest x-ray. Chest x-ray negative, urine culture negative, blood culture pending. Medicine consulted for tremors, not clear if this is related to her alcohol use. Patient did not have any more tremors. Currently patient is sitting up in a chair, in no acute distress. He says that she feels very well, denies any fevers, chills, chest pain, shortness of breath, abdominal pain, nausea or vomiting. Discussed with Dr. Norman patient's fevers, Dr. Norman believes this is all secondary to surgery and currently does not have any further concerns. Patient does not have any signs of infection. Patient will be discharged today. Review of Systems Review of Systems: All systems reviewed & are unremarkable except as noted in HPI & below Constitutional: no fever and no chills Respiratory: no cough and no dyspnea Cardiovascular: no chest pain and no palpitations Gastrointestinal: no abdominal pain, no nausea and no vomiting Physical Exam Physical Exam: Constitutional: WD/WN, vitals as above, sitting up in a chair, in NAD Head: Normocephalic, Atraumatic Eyes: PERRL, EOMI, conjunctivae normal, anicteric sclerae ENMT: external ear and nose normal, oropharynx normal Neck: trachea midline, no thyromegaly normal visual inspection Respiratory: normal respiratory effort, lungs clear to auscultation, no wheeze, rales, rhonchi. Normal insp/exp effort, no accessory muscle use Cardiovascular: RRR, no murmur, no edema Vessels: no JVD or carotid bruit Chest: normal inspection of chest Abdomen: normal bowel sounds, soft, nontender Musculoskeletal: no cyanosis or clubbing, left lateral thigh dressing CDI, NVI distally, b/l pedal pulse +2, arom to b/l upper ext Skin: no rashes, warm and dry normal turgor Neurologic: PERRL, EOMI, accommodation nl, no face palsy, no dysarthria CN's II-XI intact bilaterally and moves all extremities Psychiatric: A+Ox3, euthymic affect Results & Data Results & Data ([facility]) Vital Signs (Past 12 Hours) Vital Signs Temp Pulse Resp BP Pulse Ox 02/15/20 07:43 37.3 C 92 H 18 113/78 97 02/15/20 03:38 106/65 02/15/20 00:41 37.3 C 95/60 L 02/14/20 23:08 38.1 C H 90 15 95/60 L 92 Laboratory Results 02/15/20 02/15/20 02/15/20 Range/Units 04:00 04:00 04:00 WBC 10.99 H (4.8-10.8) K/uL RBC 3.41 L (4.2-5.4) M/uL Hgb 10.4 L (12.0-16.0) g/dL Hct 31.5 L (37-47) % MCV 92.4 (80-100) fL MCH 30.5 (25-34) pg MCHC 33.0 (32-36) g/dL RDW Std Deviation 45.1 (36.4-46.3) fL RDW Coeff of Soumya 13.4 (11.5-14.5) % Plt Count 178 (130-400) K/uL MPV 9.5 (7.4-10.4) fL Immature Gran % (Auto) 0.5 % Neut % (Auto) 65.4 % Lymph % (Auto) 21.3 % [place] % (Auto) 10.9 % Eos % (Auto) 1.6 % Baso % (Auto) 0.3 % Neut # (Auto) 7.19 H (1.4-6.5) K/uL Lymph # (Auto) 2.34 (1.2-3.4) K/uL [place] # (Auto) 1.20 H (0.11-0.59) K/uL Eos # (Auto) 0.18 (0-0.5) K/uL Baso # (Auto) 0.03 (0-0.2) K/uL Immature Gran # (Auto) 0.05 H (0.00-0.02) K/uL Sodium 142 (136-145) mmol/L Potassium 3.8 (3.5-5.1) mmol/L Chloride 109 H (98-107) mmol/L Carbon Dioxide 30 (21-32) mmol/L Anion Gap 3.0 (3-11) BUN 6 L (7-18) mg/dl Creatinine 0.69 (0.6-1.2) mg/dl Est Cr Clr Drug Dosing 70.2 ml/min Est GFR ( Amer) 102.2 Est GFR (Non-Af Amer) 88.2 BUN/Creatinine Ratio 9.1 L (10-20) Glucose 92 (70-99) mg/dl Lactate 1.3 (0.4-2.0) mmol/L Calcium 7.8 L (8.5-10.1) mg/dl Magnesium 2.5 H (1.8-2.4) mg/dl Total Bilirubin 0.6 (0.2-1) mg/dl AST 17 (15-37) U/L ALT 17 (12-78) U/L Alkaline Phosphatase 56 (45-117) U/L Total Protein 5.4 L (6.4-8.2) gm/dl Albumin 2.4 L (3.4-5.0) gm/dl Globulin 3.0 (2.5-4.0) gm/dl Albumin/Globulin Ratio 0.8 L (0.9-2) Urine Color Urine Appearance (Clear) Urine pH (4.5-7.5) Ur Specific [place] (1.000-1.030) Urine Protein (Negative) Urine Glucose (UA) (Negative) Urine Ketones (Negative) Urine Blood (Negative) Urine Nitrite (Negative) Urine Bilirubin (Negative) Urine Urobilinogen (Negative) Ur Leukocyte Esterase (Negative) Urine RBC (0-4) /hpf Urine WBC (0-5) /hpf Ur Epithelial Cells (0-5) /lpf Calcium Oxalate Crystal (None Prsent) Urine Bacteria (Negative) Hyaline Casts (0-5) /lpf Nasal Screen MRSA (PCR) (Negative) 02/14/20 02/14/20 02/14/20 Range/Units 23:41 11:15 10:10 WBC (4.8-10.8) K/uL RBC (4.2-5.4) M/uL Hgb (12.0-16.0) g/dL Hct (37-47) % MCV (80-100) fL MCH (25-34) pg MCHC (32-36) g/dL RDW Std Deviation (36.4-46.3) fL RDW Coeff of Soumya (11.5-14.5) % Plt Count (130-400) K/uL MPV (7.4-10.4) fL Immature Gran % (Auto) % Neut % (Auto) % Lymph % (Auto) % [place] % (Auto) % Eos % (Auto) % Baso % (Auto) % Neut # (Auto) (1.4-6.5) K/uL Lymph # (Auto) (1.2-3.4) K/uL [place] # (Auto) (0.11-0.59) K/uL Eos # (Auto) (0-0.5) K/uL Baso # (Auto) (0-0.2) K/uL Immature Gran # (Auto) (0.00-0.02) K/uL Sodium (136-145) mmol/L Potassium (3.5-5.1) mmol/L Chloride (98-107) mmol/L Carbon Dioxide (21-32) mmol/L Anion Gap (3-11) BUN (7-18) mg/dl Creatinine (0.6-1.2) mg/dl Est Cr Clr Drug Dosing ml/min Est GFR ( Amer) Est GFR (Non-Af Amer) BUN/Creatinine Ratio (10-20) Glucose (70-99) mg/dl Lactate 2.4 H* (0.4-2.0) mmol/L Calcium (8.5-10.1) mg/dl Magnesium (1.8-2.4) mg/dl Total Bilirubin (0.2-1) mg/dl AST (15-37) U/L ALT (12-78) U/L Alkaline Phosphatase (45-117) U/L Total Protein (6.4-8.2) gm/dl Albumin (3.4-5.0) gm/dl Globulin (2.5-4.0) gm/dl Albumin/Globulin Ratio (0.9-2) Urine Color Yellow Urine Appearance Clear (Clear) Urine pH 5.0 (4.5-7.5) Ur Specific [place] 1.025 (1.000-1.030) Urine Protein Trace H (Negative) Urine Glucose (UA) Negative (Negative) Urine Ketones Negative (Negative) Urine Blood Trace H (Negative) Urine Nitrite Negative (Negative) Urine Bilirubin Negative (Negative) Urine Urobilinogen Negative (Negative) Ur Leukocyte Esterase 1+ H (Negative) Urine RBC 5-10 H (0-4) /hpf Urine WBC 10-30 H (0-5) /hpf Ur Epithelial Cells 20-30 H (0-5) /lpf Calcium Oxalate Crystal Present A (None Prsent) Urine Bacteria 1+ H (Negative) Hyaline Casts 5-10 H (0-5) /lpf Nasal Screen MRSA (PCR) Negative (Negative) 02/14/20 Range/Units 05:18 WBC (4.8-10.8) K/uL RBC (4.2-5.4) M/uL Hgb (12.0-16.0) g/dL Hct (37-47) % MCV (80-100) fL MCH (25-34) pg MCHC (32-36) g/dL RDW Std Deviation (36.4-46.3) fL RDW Coeff of Soumya (11.5-14.5) % Plt Count (130-400) K/uL MPV (7.4-10.4) fL Immature Gran % (Auto) % Neut % (Auto) % Lymph % (Auto) % [place] % (Auto) % Eos % (Auto) % Baso % (Auto) % Neut # (Auto) (1.4-6.5) K/uL Lymph # (Auto) (1.2-3.4) K/uL [place] # (Auto) (0.11-0.59) K/uL Eos # (Auto) (0-0.5) K/uL Baso # (Auto) (0-0.2) K/uL Immature Gran # (Auto) (0.00-0.02) K/uL Sodium (136-145) mmol/L Potassium (3.5-5.1) mmol/L Chloride (98-107) mmol/L Carbon Dioxide (21-32) mmol/L Anion Gap (3-11) BUN (7-18) mg/dl Creatinine (0.6-1.2) mg/dl Est Cr Clr Drug Dosing ml/min Est GFR ( Amer) Est GFR (Non-Af Amer) BUN/Creatinine Ratio (10-20) Glucose (70-99) mg/dl Lactate (0.4-2.0) mmol/L Calcium (8.5-10.1) mg/dl Magnesium 1.9 (1.8-2.4) mg/dl Total Bilirubin (0.2-1) mg/dl AST (15-37) U/L ALT (12-78) U/L Alkaline Phosphatase (45-117) U/L Total Protein (6.4-8.2) gm/dl Albumin (3.4-5.0) gm/dl Globulin (2.5-4.0) gm/dl Albumin/Globulin Ratio (0.9-2) Urine Color Urine Appearance (Clear) Urine pH (4.5-7.5) Ur Specific [place] (1.000-1.030) Urine Protein (Negative) Urine Glucose (UA) (Negative) Urine Ketones (Negative) Urine Blood (Negative) Urine Nitrite (Negative) Urine Bilirubin (Negative) Urine Urobilinogen (Negative) Ur Leukocyte Esterase (Negative) Urine RBC (0-4) /hpf Urine WBC (0-5) /hpf Ur Epithelial Cells (0-5) /lpf Calcium Oxalate Crystal (None Prsent) Urine Bacteria (Negative) Hyaline Casts (0-5) /lpf Nasal Screen MRSA (PCR) (Negative) Medications Administered Current Inpatient Medications Acetaminophen (Acetaminophen 325 Mg Tab) 650 mg PO Q6H PRN PRN Reason: Fever Stop: 03/15/20 23:18 Last Admin: 02/14/20 23:38 Dose: 650 mg Documented by: Alprazolam (Alprazolam 0.25 Mg Tablet) 0.25 mg PO TID PRN PRN Reason: Anxiety Stop: 03/13/20 14:28 Last Admin: 02/12/20 16:46 Dose: 0.25 mg Documented by: Aspirin (Aspirin 81 Mg Ectab) 81 mg PO BID [facility] Stop: 03/14/20 20:59 Last Admin: 02/14/20 20:47 Dose: 81 mg Documented by: Ergocalciferol (Ergocalciferol 50,000 Units Cap) 50,000 units PO Mo@0900 [facility] Stop: 03/16/20 08:59 Gabapentin (Gabapentin 600 Mg Tab) 600 mg PO Q12H [facility] Stop: 02/16/20 00:01 Gabapentin (Gabapentin 600 Mg Tab) 600 mg PO Q24H [facility] Stop: 02/17/20 00:01 Hydromorphone HCl (Hydromorphone Inj 0.5 Mg/0.5 Ml Syr) 0.5 mg IV Q2H PRN PRN Reason: Pain Stop: 02/27/20 10:19 Last Admin: 02/14/20 06:44 Dose: 0.5 mg Documented by: Cefepime HCl 2,000 mg/ Syringe 20 mls @ 5 mls/min IV Q12H [facility]; Protocol Stop: 02/16/20 10:29 Last Admin: 02/14/20 22:29 Dose: 5 mls/min Documented by: Lactated Ringer's (Lr) 1,000 mls @ 75 mls/hr IV .[id number] ONE Stop: 02/15/20 18:19 Last Admin: 02/15/20 05:11 Dose: 75 mls/hr Documented by: Lisinopril (Lisinopril 10 Mg Tab) 10 mg PO DAILY [facility] Stop: 03/14/20 11:29 Last Admin: 02/14/20 08:51 Dose: 10 mg Documented by: Lorazepam (Lorazepam 1 Mg Tab) 1 mg PO ONE PRN; Protocol PRN Reason: EtoH Withdrawal AWSS 6-10 Miscellaneous Information (Cefepime Consult Active) 1 ea N/A UD PRN PRN Reason: Consult Stop: 03/15/20 09:55 Multivitamins/Minerals (Calcium 600mg + Vit D 400 Iu Tab) 1 tab PO BID [facility] Stop: 03/14/20 10:15 Last Admin: 02/14/20 20:47 Dose: 1 tab Documented by: Naloxone HCl (Naloxone Hcl 0.4 Mg/1 Ml Vial/Carp) 0.1 mg IV UD PRN PRN Reason: Opioid Overdose Stop: 03/14/20 10:15 Oxycodone HCl (Oxycodone Hcl Ir 5 Mg Tab (Immediate Release)) 5 mg PO Q4H PRN PRN Reason: Pain Stop: 02/27/20 10:19 Last Admin: 02/14/20 22:28 Dose: 5 mg Documented by: Senna/Docusate Sodium (Docusate Sodium/Senna 50/8.6mg Tab) 1 tab PO BID [facility] Stop: 03/14/20 20:59 Last Admin: 02/14/20 20:47 Dose: 1 tab Documented by: Vitamin D (Cholecalciferol 1,000 Units 25 Mcg Tab) 3,000 units PO DAILY [facility] Stop: 03/14/20 10:15 Last Admin: 02/14/20 08:51 Dose: Not Given Documented by:
--- NOTE | 2020-02-15 08:00 | Progress Notes ---
DATE: 02/15/2020 SUBJECTIVE: A 69-year-old female postop day 2 from IM nailing of a left femoral neck stress fracture. She is doing quite a bit better this morning. Pain is better. She did get around some reasonably well yesterday. No chest pain or shortness of breath. Not feeling dizzy or lightheaded. OBJECTIVE: VITAL SIGNS: Temperature 37.3. Vital signs stable. GENERAL: Shows a pleasant, middle-aged female. She just looks a lot more comfortable today. EXTREMITIES: Examination of the left leg reveals the dressing to be clean, dry and intact. No significant drainage. Thigh is soft and supple. Leg is well aligned. She is neurologically intact. LABORATORY DATA: Hemoglobin 10.4. Hematocrit 31.4. White cell count is slightly elevated at 10.99. Electrolytes are stable. ASSESSMENT: A 69-year-old female postop day 2 from IM nailing of a left femoral neck stress fracture. She is doing better today. Pain is improved. She is mobilizing better. PLAN: 1. DVT prophylaxis including thigh-high TEDs, SCDs, and aspirin twice a day. 2. PT/OT. She is 50% weightbearing in the left lower extremity. 3. Pain control, doing pretty well with current pain regimen. Seems a lot more comfortable today. 4. Disposition: She is hoping to be discharged to home. It sounds like she is getting along better today and she does have a daughter who lives next door to her who can assist in her care. Plan to discharge her likely later today.
[2020-02-15] MEDS: CALCIUM 600MG + VIT D 400 IU TAB PO SCH ×2 (08:53→20:00)
[2020-02-15] MEDS: DOCUSATE SODIUM/SENNA 50/8.6MG TAB PO SCH ×2 (08:54→19:59)
[2020-02-15] MEDS: ASPIRIN 81 MG ECTAB PO SCH ×2 (08:54→20:00)
[2020-02-15] MEDS: CHOLECALCIFEROL 1,000 UNITS 25 MCG TAB PO SCH (08:55)
[2020-02-15] MEDS ORDERED: ERGOCALCIFEROL 50,000 UNITS CAP PO SCH (09:00)
[2020-02-15] MEDS: CEFEPIME 2,000 MG in SYRINGE 7.5 ML IV SCH ×2 (10:53→21:27)
[2020-02-15] MEDS: GABAPENTIN 600 MG TAB PO SCH ×2 (12:25→23:19)
[2020-02-15] MEDS: OXYCODONE HCL IR 5 MG TAB (IMMEDIATE RELEASE) PO PRN (19:58)
[2020-02-16 07:53] VITALS: BP 129/80; PULSE 78; TEMP 99; O2SAT 91
[2020-02-16] MEDS: CHOLECALCIFEROL 1,000 UNITS 25 MCG TAB PO SCH (08:25)
[2020-02-16] MEDS: CALCIUM 600MG + VIT D 400 IU TAB PO SCH (08:25)
[2020-02-16] MEDS: DOCUSATE SODIUM/SENNA 50/8.6MG TAB PO SCH (08:26)
[2020-02-16] MEDS: ASPIRIN 81 MG ECTAB PO SCH (08:26)
[2020-02-16] MEDS: OXYCODONE HCL IR 5 MG TAB (IMMEDIATE RELEASE) PO PRN (10:30)
[2020-02-17] MEDS ORDERED: GABAPENTIN 600 MG TAB PO SCH
--- NOTE | 2020-02-19 15:15 | Discharge Summary ---
Date of Service February 19, 2020 Admission HPI Per Admitting Provider Documented in the H & P Admission Exam (Per Admitting) Constitutional Documented in the H & P Discharge Data Consultations 02/13/20 09:34 Consult Hospitalist Routine 02/13/20 10:16 Consult Case Management - Discharge Planning Routine Procedures Performed Operation Date: 02/13/20 07:30 Actual Procedures p Left Long Trochanteric Nail(Left) - Mychal Norman MD Hospital Course (1) Stress fracture of neck of left femur: This patient is a 69 year old female admitted on 02/12/20 and underwent IM nailing of her left femur on 02/13/20. She tolerated the procedure well and there were no complications. Transferred to the PACU post op and later to the orthopedic floor for further care. She was given ancef for antibiotic prophylaxis. She was also given CATE stockings, SCDs, and aspirin for DVT prophylaxis. Hemoglobin, hematocrit, and vital signs were monitored during her hospital stay and remained stable. Did not require any blood transfusions. There were no complications during their hospital stay. She did have some tremors in the PACU post op and the hospitalist service was consulted. She was placed on DT prophylaxis. By post op day #3 the patient was tolerating a vegan diet, pain was reasonably controlled with oral pain medicine, and she was participating in surveyor geophysical prospecting apy. On post op day #3 the patient was discharged to a [facility] facility. She was given printed discharge instructions including prescriptions for aspirin and oxycodone. Continue physical therapy, 50 % partial weight bearing. Continue CATE stockings. Follow up approximately 2 weeks post op or sooner if there are problems or concerns. Coding Level of Care Code None Diagnoses Stress fracture of neck of left femur M84.352A
== END 2020-02-16 11:23 | DRG 482 ==
LOC: 3E 10:52

== ENCOUNTER 2021-01-19 08:10 | Observation (INO) ==
--- NOTE | 2020-12-27 14:42 | PAT Medication Instructions ---
Medication Instructions Date of Service December 27, 2020 Home Medications alprazolam 0.25 mg PO TID PRN ergocalciferol (vitamin D2) [Vitamin D2] 1,250 mcg PO WK lisinopril 20 mg PO QDL escitalopram oxalate [Lexapro] 20 mg PO QDL Continue as directed alprazolam 0.25 mg PO TID PRN (if needed) escitalopram oxalate [Lexapro] 20 mg PO QDL DO NOT take the morning of surgery ergocalciferol (vitamin D2) [Vitamin D2] 1,250 mcg PO WK lisinopril 20 mg PO QDL Other Notes If you have any questions please call us at [phone] or [phone] or [phone] or [phone]
--- NOTE | 2020-12-29 10:42 | Anesthesiology Consultation ---
Date of Service December 29, 2020 Assessment & Plan (1) Encounter for pre-operative examination: - COVID screening: Per assessment on 12/29: Travel screen negative, no known COVID-19 positive contacts or current COVID-19 related symptoms. Patient vaccinated. Surgeon arranging preop COVID testing. Awaiting results. - S/P Left femoral troch nail (02/13/20): SAB at L3-L4 (x1 attempt) at [facility] Chart Review Chart Review: Acceptable Risk for Surgery and Patient seen in Pre Admission Testing Teaching & Discussion Pre-Anesthesia Teaching/Discussion Notes: Instructed NPO after midnight before surgery,except medications with 15 cc of water. Medication instructions provided according to the PAT guidelines. History Surgery Operation Date: 01/17/21 12:45 Proposed Procedures p Right Total Hip Arthroplasty, Hardware Removal - Mychal Norman MD Height/Weight Height: 5 ft 1 in Weight: 75.9 kg Allergies Allergy/AdvReac Type Severity Reaction Status Date / Time amoxicillin [From Augmentin] AdvReac Intermediate diarrhea Verified 12/27/20 07:56 clavulanic acid AdvReac Intermediate diarrhea Verified 12/27/20 07:56 [From Augmentin] Medications Home Medications Medication Instructions Recorded Confirmed Last Taken alprazolam 0.25 mg PO TID PRN 02/13/20 12/27/20 Unknown ergocalciferol (vitamin D2) 1,250 mcg PO WK 02/13/20 12/27/20 Unknown [Vitamin D2] lisinopril 20 mg PO QDL 02/13/20 12/27/20 Unknown escitalopram oxalate [Lexapro] 20 mg PO QDL 12/27/20 12/27/20 Unknown Past Medical History Medical History Anxiety Arthritis of right hip Degenerative joint disease of right hip Depression HTN (hypertension) Osteoarthritis Osteoporosis 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 Exercise / Class Metabolic Activity II 4-5 Yardwork/Stairs/Walk up hill Past Family History Family History Aunt Breast cancer Brother Diabetes Other No family history of adverse response to anesthesia Past Surgical History Surgical History Femur fracture, right "Spontaneous" > Left femoral troch nail (02/13/20): SAB at L3-L4 (x1 attempt) at [facility] History of colonoscopy History of dilatation and curettage History of gastric bypass Hx of appendectomy Hx of cholecystectomy Open Hx of total knee arthroplasty Left knee Hx of tubal ligation S/P cervical spinal fusion x2 (total of C3-C5 fusions)- side to side ROM limitations S/P laparoscopic hysterectomy + BSO Past Anesthesia History No Hx of Anesthesia Complications and No Family Hx of Anesthesia Complications (except sister had "awareness" with HEATHER) History of PONV No Hx of PONV and Hx of Motion Sickness (+ cars) Social History Smoking Status: Former smoker tobacco type: cigarettes Do You Dip or Chew Tobacco: No Smoking End Date: Quit 1989 Hx Alcohol Use: Yes Alcohol type: beer alcohol intake frequency: 3 or more drinks per day (3 beer/day (night)) Hx Substance Use: No substance use type: does not use Review of Systems Occasional snoring. No witnessed apnea events. Patient denies chest pain, shortness of breath, dyspnea on exertion, fever, chills, cough, wheezing, palpitations. Physical Exam Vital Signs VITALS BP 136/84 P 80 TEMP 98.5 SP02 97%RA RESP 16 PHYSICAL Full cervical extension range of motion. Full TMJ range of motion. TMD 1 finger breaths Mallampati Score 3.5 Dentition: several missing lower teeth, lower right side tooth infection with planned root canal 01/05 (abx to be done in a week) > pt will make surgeon aware Lungs: clear throughout to auscultation Cardiac: regular rate and rhythm, no murmurs noted Spine: normal Carotid arteries: negative bruit Extremities: no edema Lab Results Anesthesia Preop Results Results Anesthesia Widget: WBC 6.75 K/uL (4.8-10.8) 12/29/20 Hgb 12.1 g/dL (12.0-16.0) 12/29/20 Hct 38.8 % (37-47) 12/29/20 Plt 308 K/uL (130-400) 12/29/20 Na 140 mmol/L (136-145) 12/29/20 K 4.6 mmol/L (3.5-5.1) 12/29/20 Cl 108 mmol/L (98-107) H 12/29/20 CO2 29 mmol/L (21-32) 12/29/20 BUN 10 mg/dl (7-18) 12/29/20 Creat 0.65 mg/dl (0.6-1.2) 12/29/20 Glucose Level 97 mg/dl (70-99) 12/29/20 PT 10.2 Seconds (9.0-12.0) 12/29/20 PTT 26.5 Seconds (21.0-31.0) 12/29/20 INR 1.0 (0.9-1.1) 12/29/20 Blood Type A Negative 12/29/20 Antibody Screen NEGATIVE 12/29/20 Testing Electrocardiogram Date: 02/12/20 Findings: + NSR @ (71) Chest X-Ray Date: 02/14/20 Findings: + NAD
--- NOTE | 2021-01-14 13:52 | History and Physical Report ---
CHIEF COMPLAINT: Persistent right hip pain. HISTORY OF PRESENT ILLNESS: The patient is a 70-year-old female who I have been following for the for hip problems. She has about a 15-year history of right hip pain and discomfort dating ba to hip fracture treated in [place] in 2013. She had a long troch nail placed at that time. She h as had persistent progressive hip pain ever since. I saw her back in January when she developed acute onset of pain in her left hip and had a stress fracture and underwent IM nailing of her left femur i january of last year. She struggled initially, but is doing much better now. Pain on that side is gone and she continues to be bothered by right hip pain. She got right hip and groin and thigh and k nee pain. She has resorted to using a cane to get around. She would like to have this fixed. Of no te, the patient does have a significant history of osteoporosis managed by Dr. Rouse. PAST MEDICAL HISTORY: 1. Osteoporosis. 2. Hypertension. 3. Depression. 4. Mitral valve prolapse. PAST SURGICAL HISTORY: Include, 1. Hysterectomy. 2. Spine surgery. 3. Right long trochanteric nailing done in [place] on 10/15/2013. 4. Left knee replacement done by Dr. Harvey at [facility]. 5. Left femoral IM nailing for stress fracture done by myself on 02/13/2020. ALLERGIES: None. CURRENT MEDICATIONS: 1. Lisinopril. 2. Alprazolam. 3. Vitamin D. SOCIAL HISTORY: A 70-year-old female. She lives in [place]. . Several drinks per day. Three children. Does not smoke. FAMILY HISTORY: Noncontributory. REVIEW OF SYSTEMS: Significant for osteoporosis. No chest pain or shortness of breath. No history of DVT or PE. No known bleeding problems. PHYSICAL EXAMINATION: GENERAL: Shows a pleasant middle-aged female, who looks to be in reasonably good health. HEENT: Benign. NECK: Supple. No lymphadenopathy. LUNGS: Clear to auscultation. HEART: Regular rate and rhythm. ABDOMEN: Soft, nontender, nondistended. NEUROLOGIC: Grossly neurovascularly intact except as follows. EXTREMITIES: Examination of the right hip reveals the patient walks with use of a cane. She has got well-healed incisions around the hip and leg area. Leg lengths clinically appear pretty equal. She has got a lot of stiffness with hip motion and some pain. She can internally rotate to neutral at b est. Examination of the right knee reveals a bony hypertrophy medially. Slight varus alignment. Sm all knee effusion. Range of motion is 5-125. RADIOGRAPHS: X-rays of the right femur revealed a healed proximal femur fracture. She has got advan alon right hip DJD. She has got complete loss of superior joint space. She does have heterotopic bon e around the femur. She also has advanced right knee degenerative joint disease. She has got tricom partment disease with medial joint space loss. ASSESSMENT: A 70-year-old female about a year out from IM nailing of left femoral neck stress fractu re with, 1. Advanced right hip degenerative joint disease. 2. Right knee degenerative joint disease. She does have a history of IM nailing of fracture on this side. PLAN: We talked about treatment. I think her hip is the biggest thing at this point and the most li barbie thing to help her by fixing that. Unfortunately, we are going to have to take this IM nail out to do that. We are going to proceed with right hip hardware removal of the trochanteric nail and placement of a h ybrid total hip arthroplasty. The risks and benefits of this procedure were explained to the patient including, but not limited to, DVT, PE, , infection, neurological injury, vascular injury, blee ding problem, pain, limited range of motion, stiffness, failure to relieve her symptoms, incomplete r elief of symptoms, need for further surgery in the future, fracture, leg length inequality, nerve pal sy, etc. The patient understands and desires to proceed. Informed consent obtained. I do not think will likely need x-ray, but will need to have fluoro on standby in case we have troubl e locating the distal screws. We will take the screws out and the anna out and then proceed with a hi p replacement. Certainly, this has increased risk from a standard procedure and the patient is aware of that. She may need her knee replaced in the future as well. We will make sure she holds her lisinopril the morning of surgery. She is planning to be discharged home using [facility] program. Job ID: [id number]
[~2021-01-19 08:10] MED LIST: ACETAMINOPHEN 500 MG TAB PO SCH; BUPIVACAINE 0.5 % 5 MG/1 ML PF 10ML VIAL ONE; FAMOTIDINE 20 MG TAB PO SCH; GABAPENTIN 300 MG CAP PO SCH; LR 500ML BOLUS, THEN 15ML/HR IV SCH; LR 60ML/HR IV SCH; TRANEXAMIC ACID 1,000 MG **IV Pre-op IV SCH; ceFAZolin 2000MG 2,000 MG/15 ML SYR IV SCH
[2021-01-19] MEDS ORDERED: PROPOFOL IV EMULSION 10 MG/ML 20 ML VIAL IV ONE ×5 (08:11→12:25)
[2021-01-19] MEDS ORDERED: MIDAZOLAM HCL 1 MG/ML 2ML VIAL ONE (08:11)
[2021-01-19] MEDS ORDERED: MoRPHine SULFATE PF 1 MG/ML 10 ML AMP/VIAL ONE (08:12)
--- NOTE | 2021-01-19 08:58 | History & Physical Bridge Note ---
Date of Service January 19, 2021 History & Physical Bridge Note I have examined the patient, reviewed the History & Physical and in the interval since the performance of the History & Physical I have noted the following changes of clinical significance: no changes noted
[2021-01-19] MEDS ORDERED: ONDANSETRON INJ 2 MG/ML 2 ML VIAL IV PRN ×2 (10:51→15:59)
[2021-01-19] MEDS ORDERED: LACTATED RINGER'S 500 ML IV PRN ×2 (10:51→15:59)
[2021-01-19] MEDS ORDERED: NALOXONE HCL 0.08 MG in SYRINGE 1.8 ML IV PRN ×2 (10:51→15:59)
[2021-01-19] MEDS ORDERED: MEPERIDINE HCL 25 MG/ML CARP/VIAL IV PRN (10:51)
[2021-01-19] MEDS ORDERED: MoRPHine SULFATE PF 1 MG/ML 10 ML AMP/VIAL INT SPINAL ONE ×2 (10:51→15:59)
[2021-01-19] MEDS ORDERED: NALOXONE HCL 1 MG in SODIUM CHLORIDE 0.9% 1000ML 1,000 ML IV PRN ×2 (10:51→15:59)
[2021-01-19] MEDS ORDERED: NALOXONE HCL 0.4 MG/1 ML VIAL/CARP IV PRN ×2 (10:51→15:59)
[2021-01-19] MEDS ORDERED: diphenhydrAMINE 50 MG/ML VIAL IV PRN (10:51)
[2021-01-19] MEDS ORDERED: NALBUPHINE HCL INJ 10 MG/ML AMP IV PRN ×2 (10:51→15:59)
[2021-01-19] MEDS ORDERED: ePHEDrine sulfate 50 MG/ML AMP IV PRN ×2 (10:51→15:59)
[2021-01-19] MEDS ORDERED: DC INTRASPINAL MORPHINE SCH ×2 (11:00→16:00)
[2021-01-19] MEDS ORDERED: SODIUM CHLORIDE 0.9% 1000ML 1,000 ML IV SCH ×2 (11:00→16:00)
[2021-01-19] MEDS ORDERED: NO NARCOTICS OR SEDATIVES SCH ×2 (11:00→16:00)
[2021-01-19] MEDS ORDERED: BUPIVACAINE/EPINEPHRINE 0.5% MPF 1:200,000 30 ML VIAL ONE (11:04)
[2021-01-19] MEDS ORDERED: VANCOMYCIN HCL 1000MG/20ML VIAL ONE ×2 (11:04→13:40)
[2021-01-19] MEDS ORDERED: ePHEDrine sulfate 50 MG/ML SYR ONE (11:50)
[2021-01-19] MEDS ORDERED: PHENYLEPHRINE 100MCG/ML 5ML SYR ONE (13:07)
--- NOTE | 2021-01-19 14:53 | Post Operative Brief Note ---
PG Immediate Post Op with CF Date of Surgery January 19, 2021 Pre & Post Diagnosis Operation Date: 01/19/21 10:40 Pre-Op Diagnosis: Right Hip Osteoarthritis Post-Op Diagnosis: Right Hip Osteoarthritis I identified the patient and participated in the time-out.: Yes Procedure Operation Date: 01/19/21 10:40 Actual Procedures p Right Total Hip Replacement and Hardware Removal(Right) - Mychal Norman MD Surgeon Mychal Norman MD Security Assessor DOREEN Grijalva Estimated Blood Loss 400 Findings Consistent with Post-Op Diagnosis Specimens Specimen Description: Permanent Solution: A.) Right Femoral Head Drains Westbrook Catheter (16 romansh 10ml balloon inserted by Efe Grijalva PA-C without difficulty; urine output monitored throughout entire case by anesthesia staff) Anesthesia Type Spinal MAC Complications none Disposition Accompanied Patient To Recovery: Yes
--- NOTE | 2021-01-19 15:17 | Anesthesiology Progress Note ---
Date of Service January 19, 2021 Anesthesia Post Procedure Vital Signs Vital Signs: Temp Pulse Pulse Resp BP BP Pulse Ox 01/19/21 15:10 98.2 F 74 17 108/52 L 94 01/19/21 15:00 79 16 104/65 97 01/19/21 14:50 71 12 100/64 99 01/19/21 14:43 97.9 F 73 12 89/55 L 100 01/19/21 09:49 57 L 18 165/83 H 98 01/19/21 09:38 98.6 F 58 L 20 152/112 H 97 01/19/21 08:38 98.1 F 64 20 170/100 H 100 Pain Intensity Right Hip: Pain Intensity: 0 Transfer of Care Handoff Completed per policy Notes Mental Status: alert / awake / arousable and participated in evaluation Patient Amnestic to Procedure: Yes Nausea / Vomiting: adequately controlled Pain: adequately controlled Airway Patency, RR, SpO2: stable & adequate BP & HR: stable & adequate Hydration State: stable & adequate Neuraxial Anesthesia: was administered and sensory block is resolving Anesthetic Complications: no major complications apparent and Pt Satisfied with anesthetic care
--- NOTE | 2021-01-19 15:20 | XRay Report ---
SINGLE VIEW PELVIS; SINGLE VIEW RIGHT HIP CLINICAL HISTORY: Postoperative examination. FINDINGS: An AP portable view of the hips and pelvis with a crosstable lateral portable view of the r ight hip are obtained. A bipolar right hip arthroplasty is in near-anatomic alignment. At least 2 cor tical lag screws transfix the acetabular cup. No acute fracture is identified. There are expected pos toperative changes overlying the right hip including skin clips, subcutaneous gas, and soft tissue sw elling. Chronic posttraumatic deformity and bony overgrowth is seen involving the proximal right femo ral shaft. There is evidence of hardware removal of the distal right femoral shaft. A Westbrook catheter is in place. Chronic posttraumatic deformity is seen in the left hip with intertrochanteric and intra medullary nails in place. IMPRESSION: Expected postoperative findings status post right hip arthroplasty. No acute fracture is seen. ACT 112: Negative or not required by law. Electronically signed by: Alcides Oconnor M.D. 01/19/2021 3:18 PM
--- NOTE | 2021-01-19 15:25 | Operative Report ---
Post Operative Report Pre & Post Diagnosis Operation Date: 01/19/21 10:40 Pre-Op Diagnosis: Right Hip Osteoarthritis status post IM nailing of a right intertrochanteric hip fracture. Post-Op Diagnosis: Right Hip Osteoarthritis status post IM nailing of a right intertrochanteric hip fracture. I identified the patient and participated in the time-out.: Yes Procedure Operation Date: 01/19/21 10:40 Actual Procedures p Right Total Hip Replacement and Hardware Removal(Right) femur- Mychal Norman MD Surgeon Mychal Norman MD Rn Hyperbaric DOREEN Grijalva Estimated Blood Loss 400 Findings Consistent with Post-Op Diagnosis Operative findings were advanced right hip DJD. She had extensive heterotopic ossification bone around the proximal femur. Very stiff hip. Fluids 1200 cc Specimens Right femoral head sent for pathology. Anesthesia Type Spinal MAC Complications none Disposition Accompanied Patient To Recovery: Yes Indications Patient is a 70-year-old female who is now about 7 years out from my middling of a right intertrochanteric hip fracture performed in outside institution. Over the years she developed increased pain discomfort her right hip. X-ray showed advanced hip arthritis. She got severe diffuse osteopenia. She also form heterotopic bone around the hip which made extremely stiff. She was strongly desiring total hip replacement for relief of her arthritic symptoms. Description of Procedure Operative implants consisted of: 1. Biomet G7 size 50 mm acetabular shell. 2. 6.5 cancellous acetabular screws 1 of 35 mm in length 125 mm length. 3. Keene hole painting machine operator. 4. Highly cross-linked polyethylene liner with a 50 mm outer diameter and 36 mm diameter. 5. DePuy endurance size 2 long cemented stem with 180 mm length. 6. +12/36 mm ceramic articular ball. The patient was taken to the operating, identified, placed on the operating table supine position but all contractors were properly padded. IV antibiotics tried by anesthesia team. A spinal anesthetic had been implemented holding area. Westbrook catheter was placed in sterile fashion. Patient then placed in the left lateral decubitus position. An axillary roll was placed. A Stulberg hip positioner was used for positioning. The right hip hip and leg were then prepped and draped in the usual sterile fashion. A posterior lateral approach of the right hip was then performed to a curvilinear incision centered over the greater trochanter. I did incorporate her previous incisions proximally. Sharp dissection Through subcutaneous is down to the IT band gluteal fascia the IT band gluteal fascia incised longitudinally in line with skin incision. The underlying greater bursa was excised. The piriformis and external rotators along with the posterior hip joint capsule were then released from the posterior aspect of hip as a single layer. I then dislocated the hip. At this was difficult due to the heterotopic bone anteriorly. I did not want to remove the hardware before dislocating the hip due to her osteopenia and concern with fracture. Once we dislocated hip I relocated. I then identified the helical blade proximally along with the tip of the nail and through the abductors. I then made an incision distally over the distal interlocking screws, sharply dissected down to the IT band, opened the IT band and found the 2 distal interlocking screws and backed them out without difficulty. I then used a curette in order to curette all bone and tissue out of the proximal portion of the implant. I then loosened the set screw, remove the helical blade, and then remove the femoral nail. I did have to remove some bone proximally. We try to minimize any injury to the abductor tendon to sugges t a small incision in the abductors. Once this was complete attention was drawn back to the hip replacement. The hip was internally rotated and dislocated. Femoral neck osteotomy cut was made just below the head. It was very difficult to determine the level of the trochanter as well as extra bone that was formed around it. The femur was then retracted anteriorly. The femoral head was sent for pathology. Attention drawn the acetabulum. The acetabular labrum was excised. Pulmonary facet fat was excised. Sequential reaming the acetabular was then performed given the size 43 and progressing up to 49. I did reamed some with a 50 and then placed a 50 cup. We placed this in about 40 degrees lateral opening and 20 degrees of anteversion. It was fixed with two 6.5 cancellous acetabular screws. Trial liner was placed. Attention drawn the femur. I once again exposed the proximal femur. Was once again very difficult due to his all his heterotopic bone. I did have to remove some of this in order to get underneath the femur to elevate it and enter the canal. I removed some heterotopic bone. I was then able to enter the canal and find the IM canal. We then reamed up to a 14-1/2 and then broached to a size 2. We got pretty good fit with a 2 and did not want a push issue especially considering her osteopenic bone. I then trialed the hip and the +12 a ball seem to recreate soft tissue tension appropriately, leg lengths appropriately, and was fully stable in all positions. We elected to place these implants. All trial implants were removed. An apex hole painting machine operator was placed. Highly cross-linked polyethylene liner was placed. I then irrigated the canal extensively. I placed a cement restrictor 20 cm down the canal. Double batch Palacos G cement was mixed. I then placed a size 2 x 180 mm endurance femoral stem with a centralizer in about 15 to 20 degrees of anteversion. Once all the cement hardened a final liner trial was performed and I elect to place the plus a 12 neck length. The +12/36 mm ceramic articular ball was placed. Hip was located once again found to be stable. Attention drawn toward closing. The wound was irrigated with copious also pulsatile lavage solution. We did inject locally with a total of 60 cc of half percent Marcaine with epinephrine with about 20 cc distally around the interlocking screws and 40 cc proximally. The posterior hip joint capsule was then repaired to the posterior aspect of the greater trochanter with #2 Tycron suture. Some of the gluteal sling which had to be released was repaired with 0 Vicryl suture in a [id number] fashion. The IT band gluteal fascia then closed in 1 PDS suture running fashion. I also closed the IT band distally with a #1 Vicryl suture in a running fashion. Subcutaneous tissue in both wounds were then closed with 2 Dexon suture in a buried interrupted fashion skin was closed skin kathleen. Legs then cleaned and dried a sterile dressing was Xeroform, 4 x 4's, sterile ABD pad and foam tape was applied. Patient then transferred to the recovery room in stable condition. Patient tolerated procedure well and there were no complications. Efe Grijalva, my physician respiratory equipment assistant, was present for the entire procedure. His assistance was essential and required for appropriate patient positioning, prepping and draping, surgical exposure, performing the technical details of the operation, placement the implants, closure of the wound, and placement of the sterile bandage. I attest to the content of the Intraoperative Record and any orders documented therein. Any exceptions are noted below.
[2021-01-19] MEDS ORDERED: ALUMINUM/MAGNESIUM SUSP 30 ML UDC PO PRN (15:39)
[2021-01-19] MEDS ORDERED: bisacodyL 10 MG SUPP PR PRN (15:39)
[2021-01-19] MEDS ORDERED: MAGNESIUM HYDROXIDE SUSP 30 ML UDC PO PRN (15:39)
[2021-01-19] MEDS ORDERED: METOCLOPRAMIDE HCL INJ 5 MG/ML 2 ML VIAL IV PRN (15:39)
[2021-01-19] MEDS: SODIUM CHLORIDE 0.9% 1000ML 1,000 ML IV SCH (16:44)
[2021-01-19] MEDS: KETOROLAC TROMETHAMINE 15 MG/ML VIAL IV SCH ×2 (17:21→22:06)
[2021-01-19] MEDS: ASCORBIC ACID 500 MG TAB PO SCH (17:22)
[2021-01-19] MEDS: diphenhydrAMINE 50 MG/ML VIAL IV PRN (19:37)
[2021-01-19] MEDS: ceFAZolin 1000MG 1,000 MG/7.5 ML SYR IV SCH (20:31)
[2021-01-19] MEDS: DOCUSATE SODIUM 100 MG CAP PO SCH (20:34)
[2021-01-19] MEDS: ASPIRIN 81 MG ECTAB PO SCH (20:34)
[2021-01-19] MEDS: SENNA 8.6 MG TAB PO SCH (20:34)
[2021-01-19] MEDS: MEPERIDINE HCL 25 MG/ML CARP/VIAL IV PRN (20:38)
[2021-01-19] MEDS ORDERED: TRANEXAMIC ACID / 0.7% NACL 1,000 MG/100 ML BAG IV SCH (21:00)
[2021-01-19] MEDS: ACETAMINOPHEN 500 MG TAB PO SCH (22:05)
[2021-01-20] MEDS: SODIUM CHLORIDE 0.9% 1000ML 1,000 ML IV SCH (01:24)
[2021-01-20] MEDS: MEPERIDINE HCL 25 MG/ML CARP/VIAL IV PRN ×2 (01:28→05:18)
[2021-01-20] MEDS: KETOROLAC TROMETHAMINE 15 MG/ML VIAL IV SCH ×4 (04:00→21:01)
[2021-01-20] MEDS: ceFAZolin 1000MG 1,000 MG/7.5 ML SYR IV SCH (04:02)
[2021-01-20] MEDS: ACETAMINOPHEN 500 MG TAB PO SCH ×3 (05:14→21:01)
[2021-01-20] MEDS: diphenhydrAMINE 50 MG/ML VIAL IV PRN (05:51)
[2021-01-20 06:43] LABS: Basophils # (auto) 0.03 K/uL (0-0.2); Basophils % (auto) 0.5 %; Eosinophils # (auto) 0.12 K/uL (0-0.5); Eosinophils % (auto) 1.8 %; Hematocrit (blood only) 25.3 % (37-47); Hemoglobin 7.8 g/dL (12.0-16.0); Immature Granulocytes # (auto) 0.02 K/uL (0.00-0.02); Immature Granulocytes % (auto) 0.3 %; Lymphocytes # (auto) 1.19 K/uL (1.2-3.4); Lymphocytes % (auto) 18.1 %; Mean Corpuscular Hgb Conc 30.8 g/dL (32-36); Mean Corpuscular Volume 87.5 fL (80-100); Monocytes # (auto) 0.62 K/uL (0.11-0.59); Monocytes % (auto) 9.4 %; Neutrophils % (auto) 69.9 %; Platelet Count 169 K/uL (130-400); RDW Coefficient of Variation 14.6 % (11.5-14.5); RDW Standard Deviation 47.4 fL (36.4-46.3); Red Blood Count 2.89 M/uL (4.2-5.4); White Blood Count 6.58 K/uL (4.8-10.8)
[2021-01-20 07:07] LABS: BUN Creatinine Ratio 16.1 (10-20); Calcium 7.6 mg/dl (8.5-10.1); Creatinine Clr Calc Pharmacy 87.6 ml/min; Est GFR (African American) 109.4 ml/min; Est GFR (Non-African American) 94.4 ml/min; Potassium 3.7 mmol/L (3.5-5.1); RBC Morphology Unremarkable
[2021-01-20] MEDS ORDERED: dexAMETHasone 10 MG in SYRINGE 0 ML IV SCH (08:00)
[2021-01-20] MEDS: DOCUSATE SODIUM 100 MG CAP PO SCH ×2 (08:40→21:01)
[2021-01-20] MEDS: ASCORBIC ACID 500 MG TAB PO SCH ×2 (08:40→16:58)
[2021-01-20] MEDS: ASPIRIN 81 MG ECTAB PO SCH ×2 (08:40→21:01)
[2021-01-20] MEDS: MULTIVITAMIN TAB PO SCH (08:40)
--- NOTE | 2021-01-20 09:47 | Progress Notes ---
DATE OF SERVICE: 01/20/2021 SUBJECTIVE: A 70-year-old white female postop day 1 from right IM nail removal and total hip arthrop lasty. She is doing quite well. Really no pain while resting, but some discomfort when weightbearin g. No chest pain or shortness of breath. Not feeling dizzy or lightheaded. OBJECTIVE: VITAL SIGNS: Temperature 37.0. Vital signs are stable. PHYSICAL EXAMINATION: GENERAL: Shows a pleasant middle-aged female. She is sitting up in bed and looks comfortable. LUNGS: Clear to auscultation. HEART: Regular rate and rhythm. ABDOMEN: Soft, nontender, nondistended. EXTREMITIES: Grossly neurovascularly intact except as follows: Examination of the right leg reveals the leg to be well aligned. Dressings clean, dry and intact. She can dorsiflex and plantarflex her foot appropriately. She cannot quite do a straight leg raise. LABORATORY DATA: Hemoglobin 7.8. Hematocrit 25.3. Electrolytes are stable. ASSESSMENT: A 70-year-old white female postoperative day 1 from her right hip replacement and hardwa re removal, doing pretty well. Pretty extensive surgery. Her pain is controlled. Hip is located. She is neurologically intact. She is slightly anemic, but asymptomatic. PLAN: 1. DVT prophylaxes include thigh-high TEDs, SCDs, and aspirin twice a day. 2. PT, OT, weightbear as tolerated. Right total hip protocol. 3. Pain control, doing okay with current pain regimen. 4. Disposition: Plan to discharge to home. We are going to keep her in the hospital for multiple re asons today, especially the severity of her surgery and recovery, hemoglobin and functional status. We will hopefully discharge tomorrow if does okay in therapy. Job ID: [id number]
[2021-01-20] MEDS ORDERED: NALOXONE HCL 0.4 MG/1 ML VIAL/CARP IV PRN (10:00)
[2021-01-20] MEDS ORDERED: ONDANSETRON INJ 2 MG/ML 2 ML VIAL IV PRN (10:00)
[2021-01-20] MEDS ORDERED: ALPRAZolam 0.25 MG TABLET PO PRN (10:00)
[2021-01-20] MEDS: traMADol HCL 50 MG TABLET PO PRN (10:06)
[2021-01-20] MEDS: lisinopril 20 MG TAB PO SCH (11:20)
[2021-01-20] MEDS: ESCITALOPRAM OXALATE 20 MG TAB PO SCH (11:20)
[2021-01-20] MEDS: SENNA 8.6 MG TAB PO SCH (21:01)
[2021-01-21] MEDS: traMADol HCL 50 MG TABLET PO PRN ×2 (02:01→08:10)
[2021-01-21] MEDS: KETOROLAC TROMETHAMINE 15 MG/ML VIAL IV SCH ×2 (04:50→10:49)
[2021-01-21] MEDS: ACETAMINOPHEN 500 MG TAB PO SCH (05:03)
[2021-01-21 07:08] LABS: Hematocrit (blood only) 24.8 % (37-47); Hemoglobin 7.8 g/dL (12.0-16.0)
[2021-01-21] MEDS: DOCUSATE SODIUM 100 MG CAP PO SCH (08:11)
[2021-01-21] MEDS: MULTIVITAMIN TAB PO SCH (08:12)
[2021-01-21] MEDS: ASCORBIC ACID 500 MG TAB PO SCH (08:12)
[2021-01-21] MEDS: ASPIRIN 81 MG ECTAB PO SCH (08:12)
[2021-01-21] MEDS: lisinopril 20 MG TAB PO SCH (10:48)
[2021-01-21] MEDS: ESCITALOPRAM OXALATE 20 MG TAB PO SCH (10:49)
--- NOTE | 2021-01-21 12:14 | Progress Notes ---
SUBJECTIVE: A 70-year-old white female postop day 2 from IM nail removal and hybrid total hip arthro plasty. She did pretty well yesterday, but had a little bit more pain overnight. No chest pain or s hortness of breath. Not feeling dizzy or lightheaded. OBJECTIVE: VITAL SIGNS: Temperature is 37.3. Vital signs are stable. GENERAL: Shows a pleasant, elderly female. She is lying in bed, looks pretty comfortable in bed. EXTREMITIES: Examination of the right leg reveals the dressing to be clean, dry and intact. Leg vivienne gths are equal. She can slide her foot up and down appropriately. NEUROLOGIC: She is neurologically intact. LABORATORY DATA: Hemoglobin 7.8. Hematocrit 24.8. ASSESSMENT: A 70-year-old female postop day 2 from right femur hardware removal and hybrid total hip arthroplasty, doing reasonably well. Fairly big operation, but seems to be doing okay. Pain is sig nificant, but not out of the ordinary. Hip is located. She is neurologically intact. PLAN: 1. DVT prophylaxis include thigh-high TEDs, SCDs, and aspirin twice a day. 2. PT, OT, weightbear as tolerated. Right total hip protocol. 3. Pain control, doing okay with current pain regimen. 4. Disposition and plan to discharge to home with some home health likely later today if does okay i n therapy. Job ID: [id number]
[2021-01-23] MEDS ORDERED: ERGOCALCIFEROL 50,000 UNITS 1250 MCG CAP PO SCH (09:00)
--- NOTE | 2021-01-26 16:25 | Discharge Summary ---
Date of Service January 26, 2021 Discharge Data Procedures Performed Operation Date: 01/19/21 10:40 Actual Procedures p Right Total Hip Replacement and Hardware Removal(Right) - Mychal Norman MD Hospital Course (1) Status post total hip replacement, right: This is a 70 year old patient admitted on 01/19/21 and underwent hardware removal and total hip arthroplasty. She tolerated the procedure well and there were no complications. Transferred to the PACU post op and later to the orthopedic floor for further care. She was given ancef for antibiotic prophylaxis. She was also given CATE stockings, SCDs, and aspirin for DVT prophylaxis. Hemoglobin, hematocrit, and vital signs were monitored during her hospital stay and remained stable. Did not require any blood transfusions. There were no complications during her hospital stay. By post op day #2 the patient was tolerating a vegan diet, pain was reasonably controlled with oral pain medicine, and she was participating in physical therapy. On post op day #2 the patient was discharged home and set up with home health care. She was given printed discharge instructions including prescriptions for extra strength tylenol, aspirin, and tramadol. Continue physical therapy, weight bearing as tolerated. Continue hip precautions. Continue CATE stockings. Follow up approximately 2 weeks post op or sooner if there are problems or concerns. Coding Level of Care Code None Diagnoses Status post total hip replacement, right Z96.641
== END 2021-01-21 15:05 | disposition home health service (06) ==
LOC: ASU 08:10 → 3E 08:10